=== PATIENT | female | born 1955 | race Caucasian/White ===

== ENCOUNTER 2018-03-08 00:42 | Inpatient (IN) | payer MEDICARE ==
[2018-03-08 01:36] LABS: #Basophils 0.2 thou/uL (0.0-0.2); #Eosinphils 0.3 thou/uL (0.0-0.7); #Monocytes 0.5 thou/uL (0.11-0.59); #Neutrophils 4.4 thou/uL (1.40-6.50); %Basophils 1.5 % (0.0-1.0); %Eosinophils 2.7 % (0.0-10.0); %Lymphocytes 48.5 % (21.0-51.0); %Monocytes 4.6 % (0.0-10.0); %Neutrophils 42.7 % (42.0-75.0); Hemoglobin 10.6 g/dL (12.0-16.0); Mean Corpuscular HGB CONC 34.9 g/dL (32.0-36.0); Mean Corpuscular Hemoglobin 33.3 pg (27.0-31.0); Mean Corpuscular Volume 95.2 fl (81.0-99.0); Mean Platelet Volume 9.5 fL (7.4-10.4); Platelet Count 177 thou/uL (130-400); RBC Distribution Width 12.3 % (11.5-14.5); Red Blood Cell (RBC) Count 3.19 mill/uL (4.20-5.40); White Blood Cell (WBC) Count 10.4 thou/uL (4.8-10.8)
[2018-03-08 02:00] LABS: CKMB 2.2 ng/mL (0-6.6)
[2018-03-08] MEDS ORDERED: GENTAMICIN SULFATE IVPB SCH (02:00)
[2018-03-08] MEDS ORDERED: SODIUM CHLORIDE 0.9% IVPB SCH (02:00)
[2018-03-08 02:10] LABS: Troponin I Less than 0.010 ng/mL (< 0.028)
[2018-03-08 02:14] LABS: ALT (SGPT) 11 U/L (8-55); AST (SGOT) 18 U/L (5-34); Albumin 3.2 g/dL (3.5-5.0); Alkaline Phosphatase 47 U/L (40-150); Anion Gap 12 mmol/L (10-20); BUN (Urea Nitrogen) 16 mg/dL (9.8-20.1); Bilirubin, Total 0.2 mg/dL (0.2-1.2); Calc. Creatinine Clearance 0 mL/min (70-130); Calcium 7.5 mg/dL (7.8-10.44); Carbon Dioxide 17 mmol/L (22-29); Chloride 111 mmol/L (98-107); Estimated GFR-MDRD Greater than 90; Glucose 86 mg/dL (70-105); Potassium 3.9 mmol/L (3.5-5.1); Protein, Total 5.2 g/dL (6.0-8.3); Sodium 136 mmol/L (136-145)
[2018-03-08] MEDS ORDERED: HYDROmorphone 2 MG TAB PO SCH (04:30)
[2018-03-08] MEDS ORDERED: cefTRIAXone Sodium 1 MG in Syringe 0 ML IVPB SCH (04:30)
[2018-03-08] MEDS: cefTRIAXone\\ROCEPHIN 1 GM, Syringe 0.4 ML in Sterile Water 9.6 ML SLOW IVP SCH (05:11)
[2018-03-08] MEDS: Sodium Chloride 0.9% 1,000 ML IV SCH ×2 (06:12→18:31)
--- NOTE | 2018-03-08 06:22 | HP ---
CHIEF COMPLAINT: Hypotension, generalized weakness. PRIMARY CARE PHYSICIAN: Out of town PCP. HISTORY OF PRESENT ILLNESS: The patient is a very pleasant 62-year-old female with history of hypert ension and anxiety who presents to the hospital with complaints of generalized weakness and low blood pressure. The patient stated that about couple of days ago after taking her blood pressure medicati ons, she felt unwell so when she took her blood pressure at home she found that her blood pressure wa s very low. The following day, patient just only took one of her blood pressure medication and she s tated that her blood pressure that day was well. However, today she took all her blood pressure medi cations and started feeling unwell so her daughter drove her to the ER. Upon bringing her to the ER, patient started seeing some dark spots and did not feel really well and started having an anxiety or panic attack. At this time, the patient's daughter pulled the car over and called EMS to bring her to the hospital for further evaluation. PAST MEDICAL HISTORY: History of right bundle branch block, anxiety, hepatitis C, Galvan's palsy, COPD , and hypertension. PAST SURGICAL HISTORY: She had bilateral hip done. She has a history of MRSA infection x3 in her ri ght hip and history of tonsillectomy. SOCIAL HISTORY: She denies any alcohol use, denies any drugs; however, she currently continues to sm elizabeth cigarettes. The patient smokes half a pack a day. ALLERGIES: PENICILLIN. The patient says that she denies any rash or hives with penicillin or any di fficulty breathing. MEDICATIONS: She takes losartan 25 mg daily. She takes sertraline 25 mg daily, clonidine 0.1 mg as needed, hydrocodone 4 mg every 8 hours p.r.n., Xanax 0.25 every 6 hours p.r.n., metoprolol 25 mg once a day, BuSpar 10 mg b.i.d., Benadryl 25 mg every 8 hours, Keflex 500 mg t.i.d., escitalopram 10 mg d aily, and meclizine 25 mg every 8 hours p.r.n. FAMILY HISTORY: Denies any family history of any heart disease or any diabetes. REVIEW OF SYSTEMS: The following complete review of systems was negative, unless otherwise mentioned in the HPI or below: Constitutional: Weight loss or gain, ability to conduct usual activities. Sk in: Rash, itching. Eyes: Double vision, pain. ENT/Mouth: Nose bleeding, neck stiffness, pain, ten derness. Cardiovascular: Palpitations, dyspnea on exertion, orthopnea. Respiratory: Shortness of breath, wheezing, cough, hemoptysis, fever or night sweats. Gastrointestinal: Poor appetite, abdomi nal pain, heartburn, nausea, vomiting, constipation, or diarrhea. Genitourinary: Urgency, frequency , dysuria, nocturia. Musculoskeletal: Pain, swelling. Neurologic/Psychiatric: Anxiety, depression . Allergy/Immunologic: Skin rash, bleeding tendency. All negative except for the ones mentioned in the HPI. PHYSICAL EXAMINATION: VITAL SIGNS: She is afebrile at 98.2, respirations of 18, 97% on room air. Her blood pressure initi ally was 80/53 when I was in the room, it was 106/60, pulse of 73. GENERAL: She is awake, alert, oriented x3, does not appear in any distress. CARDIOVASCULAR: S1, S2 present. No murmurs, rubs or gallops. LUNGS: Clear to auscultation. No rhonchi, wheezes noted. ABDOMEN: Soft. Bowel sounds are present x2. Mild epigastric tenderness. EXTREMITIES: The patient does have an inversion of her left foot inward, which is chronic. No pain upon palpation around her bilateral hip area. LABORATORY DATA: Are as the following: WBCs of 10.4, hemoglobin of 10.6, hematocrit of 30.4, platel ets are normal at 177. Chemistry: Sodium of 132, potassium of 3.9, BUN of 16, and creatinine of 0.5 8. Troponin x2 negative. Lactic acid initially was 3.6, now is 1.2. Chest x-ray was done in the ER , which did not indicate any acute abnormalities. ASSESSMENT AND PLAN: The patient is a very pleasant 62-year-old female who initially presented to [facility] for hypertension. 1. Possible sepsis. The patient received some fluids in the ER. We will continue gentle IV hydrati on. We will hold her antihypertensives. We will continue ceftriaxone for her urinary tract infectio n. Blood cultures are drawn. We will continue to monitor. 2. Hypotension. This could be secondary to her taking her medications in conjunction with the pain medication. The patient denies any recent adjustment in her blood pressure medications. The patient states that she has been eating and drinking well. Denies any recent dehydration state or any diarr hea. We will hold off on patient's blood pressure medications for now and continue to monitor. 3. Anxiety. We will continue patient's home medications. 4. Chronic right hip pain. We will continue patient's Dilaudid 4 mg every 8 hours. 5. Deep venous thrombosis prophylaxis. We will put patient on sequential compression devices.
[2018-03-08 07:11] VITALS: BMI 23.5
[2018-03-08] MEDS: Docusate 100 MG CAP PO SCH ×2 (08:32→21:02)
[2018-03-08] MEDS: Heparin 5,000 UNITS/ML VIAL SC SCH ×3 (08:32→21:05)
[2018-03-08] MEDS ORDERED: HYDROmorphone 2 MG TAB PO PRN (13:18)
[2018-03-08] MEDS ORDERED: Meclizine HCl 25 MG TAB PO PRN (13:18)
[2018-03-08] MEDS ORDERED: DULoxetine 30 MG CAP PO SCH (13:30)
[2018-03-08] MEDS ORDERED: Escitalopram Oxalate 10 mg Tablet PO SCH (13:30)
[2018-03-08] MEDS: ALPRAZolam 0.25 MG TAB PO PRN ×2 (13:40→22:57)
[2018-03-08] MEDS: Cephalexin 250 MG CAP PO SCH ×2 (15:15→21:01)
[2018-03-08] MEDS: HYDROmorphone 2 MG TAB PO SCH ×2 (15:16→21:02)
[2018-03-08] MEDS ORDERED: Nicotine 14 MG PATCH TD PRN (18:21)
[2018-03-09 06:25] LABS: #Basophils 0.1 thou/uL (0.0-0.2); #Eosinphils 0.2 thou/uL (0.0-0.7); #Lymphocytes 2.7 thou/uL (1.20-3.40); #Monocytes 0.4 thou/uL (0.11-0.59); %Basophils 0.9 % (0.0-1.0); %Eosinophils 2.6 % (0.0-10.0); %Lymphocytes 28.3 % (21.0-51.0); %Monocytes 4.5 % (0.0-10.0); %Neutrophils 63.7 % (42.0-75.0); Hemoglobin 11.3 g/dL (12.0-16.0); Mean Corpuscular HGB CONC 34.4 g/dL (32.0-36.0); Mean Corpuscular Volume 95.7 fl (81.0-99.0); Mean Platelet Volume 10.2 fL (7.4-10.4); Platelet Count 208 thou/uL (130-400); RBC Distribution Width 12.5 % (11.5-14.5); Red Blood Cell (RBC) Count 3.44 mill/uL (4.20-5.40); White Blood Cell (WBC) Count 9.4 thou/uL (4.8-10.8)
[2018-03-09] MEDS: HYDROmorphone 2 MG TAB PO SCH ×3 (06:32→21:09)
[2018-03-09] MEDS: cefTRIAXone\\ROCEPHIN 1 GM, Syringe 0.4 ML in Sterile Water 9.6 ML SLOW IVP SCH (06:33)
[2018-03-09] MEDS: Sodium Chloride 0.9% 1,000 ML IV SCH ×3 (06:33→23:48)
[2018-03-09 06:42] LABS: Anion Gap 11 mmol/L (10-20); BUN (Urea Nitrogen) 6 mg/dL (9.8-20.1); Calc. Creatinine Clearance 98 mL/min (70-130); Carbon Dioxide 16 mmol/L (22-29); Chloride 115 mmol/L (98-107); Estimated GFR-MDRD Greater than 90; Glucose 105 mg/dL (70-105); Sodium 139 mmol/L (136-145)
[2018-03-09 07:47] LABS: Folate (Folic Acid) 9.1 ng/mL (7.0-31.4)
[2018-03-09] MEDS: Escitalopram Oxalate 10 mg Tablet PO SCH (08:25)
[2018-03-09] MEDS: DULoxetine 30 MG CAP PO SCH (08:25)
[2018-03-09] MEDS: Heparin 5,000 UNITS/ML VIAL SC SCH ×3 (08:25→20:19)
[2018-03-09] MEDS: Docusate 100 MG CAP PO SCH ×2 (08:25→20:20)
[2018-03-09] MEDS: Losartan 25 MG TAB PO SCH (08:25)
[2018-03-09] MEDS ORDERED: Potassium Chloride 20 MEQ TAB PO SCH (10:00)
[2018-03-09] MEDS: ALPRAZolam 0.25 MG TAB PO PRN ×2 (11:12→18:50)
--- NOTE | 2018-03-09 15:03 | CT ---
NONCONTRAST HEAD CT: HISTORY: Dizziness. Losing track of time. COMPARISON: None. TECHNIQUE: A noncontrast head CT is performed from the skull base to the skull vertex. FINDINGS: No parenchymal hemorrhage. No extraaxial hematoma. No midline shift. The basilar cisterns are ortega nt. Age appropriate brain volume. Cortical hernandez white matter differentiation is preserved. The ventricles and sulci are patent and symmetric. Adequate aeration of the paranasal sinuses. Bilateral mastoid air cell and middle ear opacification. IMPRESSION: No acute intracranial process. POS: OFF
--- NOTE | 2018-03-09 20:17 | PDOC.PN ---
- Subjective Encounter Start Date: 03/09/18 Encounter Start Time: 09:45 Subjective: pt up in bed no complains - Objective Resuscitation Status: Resuscitation Status FULL:Full Resuscitation Vital Signs & Weight: Vital Signs (12 hours) Temp Pulse Pulse Pulse Resp BP BP 03/09/18 17:55 03/09/18 15:56 98.1 F 111 H 16 03/09/18 11:07 73 59 L 140/103 H 165/91 H 03/09/18 08:24 96.5 F L 60 16 BP BP BP BP Pulse Ox 03/09/18 17:55 155/80 H 122/87 161/76 H 03/09/18 15:56 181/101 H 91 L 03/09/18 11:07 03/09/18 08:24 98 Weight Weight 116 lb 4.8 oz I&O: 03/08/18 03/09/18 03/10/18 06:59 06:59 06:59 Intake Total 1381 1551 Balance 1381 1551 Result Diagrams: 03/09/18 06:04 03/09/18 06:04 Phys Exam - Physical Examination HEENT: PERRLA, moist MMs, sclera anicteric, TM's clear, oral pharynx no lesions , 2+ tonsils Neck: no nodes, no JVD, supple, full ROM Respiratory: no wheezing, no rales, no rhonchi, wheezing present, clear to auscultation bilateral Cardiovascular: RRR, no significant murmur, no rub, gallop, irregular Gastrointestinal: soft, non-tender, no distention, positive bowel sounds Dx/Plan - Plan * 1) possible sepsis * 2) hypotension * 3) chronic pain * * plan: UA normal cachorro, will discontinue abx, pt's hypotension has resolved. will continue to cut back on her meds. pt complained of some memory loss, will check ct head, vit b12. If negative will discharge pt home and follow up outpatient with neurology. Review of Systems - Review of Systems Eyes: negative: Pain, Vision Change, Conjunctivae Inflammation, Eyelid Inflammation, Redness, Other Respiratory: negative: Cough, Dry, Shortness of Breath, Hemoptysis, SOB with Excertion, Pleuritic Pain, Sputum, Wheezing Cardiovascular: negative: chest pain, palpitations, orthopnea, paroxysmal nocturnal dyspnea, edema, light headedness, other Gastrointestinal: negative: Nausea, Vomiting, Abdominal Pain, Diarrhea, Constipation, Melena, Hematochezia, Other Genitourinary: negative: Dysuria, Frequency, Incontinence, Hematuria, Retention , Other Musculoskeletal: negative: Neck Pain, Shoulder Pain, Arm Pain, Back Pain, Hand Pain, Leg Pain, Foot Pain, Other Neurological: Other Other: memory loss - Medications/Allergies Allergies/Adverse Reactions: Allergies Allergy/AdvReac Type Severity Reaction Status Date / Time Penicillins Allergy Verified 03/08/18 01:52 Medications: Current Medications Alprazolam (Xanax) 0.25 mg PO Q6HR PRN PRN Reason: Anxiety Last Admin: 03/09/18 18:50 Dose: 0.25 mg Docusate Sodium (Colace) 100 mg PO BID [facility] Last Admin: 03/09/18 08:25 Dose: 100 mg Duloxetine HCl (Cymbalta) 30 mg PO DAILY [facility] Last Admin: 03/09/18 08:25 Dose: Not Given Escitalopram Oxalate (Lexapro) 10 mg PO DAILY [facility] Last Admin: 03/09/18 08:25 Dose: 10 mg Heparin Sodium (Porcine) (Heparin) 5,000 units SC TID [facility] Last Admin: 03/09/18 14:38 Dose: 5,000 units Hydromorphone HCl (Dilaudid) 2 mg PO Q8HR [facility] Last Admin: 03/09/18 14:37 Dose: 2 mg Hydromorphone HCl (Dilaudid) 4 mg PO Q8HR PRN PRN Reason: Pain Sodium Chloride (Normal Saline 0.9%) 1,000 mls @ 75 mls/hr IV .[id number] [facility] Last Admin: 03/09/18 06:33 Dose: 1,000 mls Ceftriaxone Sodium 1 gm/ (Syringe 0.4 ml/ Sterile Water) 10 mls @ 120 mls/hr SLOW IVP 0500 [facility] Last Admin: 03/09/18 06:33 Dose: 10 mls Lorazepam (Ativan) 0.5 mg SLOW IVP Q6H PRN PRN Reason: Anxiety/Agitation Losartan Potassium (Cozaar) 25 mg PO DAILY [facility] Last Admin: 03/09/18 08:25 Dose: 25 mg Meclizine HCl (Antivert) 25 mg PO TID PRN PRN Reason: Dizziness Metoprolol Succinate (Toprol Xl) 25 mg PO DAILY [facility] Last Admin: 03/09/18 08:25 Dose: 25 mg Mirabegron (Myrbetriq Er) 50 mg PO DAILY [facility] Last Admin: 03/09/18 08:24 Dose: 50 mg Nicotine (Nicoderm Patch) 14 mg TD Q24HR PRN PRN Reason: Smoking craving
[2018-03-09] MEDS: Lorazepam 2 MG/ML VIAL SLOW IVP PRN (23:48)
[2018-03-10] MEDS: cefTRIAXone\\ROCEPHIN 1 GM, Syringe 0.4 ML in Sterile Water 9.6 ML SLOW IVP SCH (04:29)
[2018-03-10] MEDS: HYDROmorphone 2 MG TAB PO SCH ×3 (05:14→21:42)
[2018-03-10 07:07] LABS: Anion Gap 13 mmol/L (10-20); BUN (Urea Nitrogen) 7 mg/dL (9.8-20.1); Calc. Creatinine Clearance 78 mL/min (70-130); Calcium 8.4 mg/dL (7.8-10.44); Carbon Dioxide 16 mmol/L (22-29); Chloride 113 mmol/L (98-107); Estimated GFR-MDRD Greater than 90; Glucose 103 mg/dL (70-105); Potassium 3.5 mmol/L (3.5-5.1); Sodium 138 mmol/L (136-145)
[2018-03-10] MEDS: Docusate 100 MG CAP PO SCH ×2 (08:27→19:42)
[2018-03-10] MEDS: Losartan 25 MG TAB PO SCH (08:28)
[2018-03-10] MEDS: DULoxetine 30 MG CAP PO SCH (08:28)
[2018-03-10] MEDS: Heparin 5,000 UNITS/ML VIAL SC SCH ×3 (08:28→19:42)
[2018-03-10] MEDS: Escitalopram Oxalate 10 mg Tablet PO SCH (08:28)
[2018-03-10] MEDS: Lorazepam 2 MG/ML VIAL SLOW IVP PRN (11:08)
--- NOTE | 2018-03-10 17:10 | PDOC.PN ---
- Subjective Encounter Start Date: 03/10/18 Encounter Start Time: 11:30 Subjective: pt up in chair hyperventilating, anxious - Objective Resuscitation Status: Resuscitation Status FULL:Full Resuscitation Vital Signs & Weight: Vital Signs (12 hours) Temp Pulse Resp BP Pulse Ox 03/10/18 15:57 97.4 F L 70 18 169/100 H 99 03/10/18 11:51 98 F 79 18 158/86 H 99 03/10/18 08:00 97.2 F L 78 18 98 03/10/18 07:37 97.2 F L 78 18 162/102 H 98 Weight Weight 116 lb 4.8 oz I&O: 03/09/18 03/10/18 03/11/18 06:59 06:59 06:59 Intake Total 1381 2691 Balance 1381 2691 Result Diagrams: 03/09/18 06:04 03/10/18 06:02 Phys Exam - Physical Examination HEENT: PERRLA, moist MMs, sclera anicteric, TM's clear, oral pharynx no lesions , 2+ tonsils Neck: no nodes, no JVD, supple, full ROM Respiratory: no wheezing, no rales, no rhonchi, wheezing present, clear to auscultation bilateral Cardiovascular: RRR, no significant murmur, no rub, gallop, irregular Gastrointestinal: soft, non-tender, no distention, positive bowel sounds Musculoskeletal: no edema, pulses present, edema present Dx/Plan - Plan 1) possible sepsis * 2) hypotension * 3) chronic pain * 4) smoking cessation * * plan: UA normal cachorro, will discontinue abx, pt's hypotension has resolved. will continue to cut back on her meds. pt complained of some memory loss, will check ct head, vit b12. ct head negative. echo ordered pending read. pt very anxious today about her conversation with her daughter. pt was advised against smoking. * * . Review of Systems - Review of Systems Eyes: negative: Pain, Vision Change, Conjunctivae Inflammation, Eyelid Inflammation, Redness, Other ENT: negative: Ear Pain, Ear Discharge, Nose Pain, Nose Discharge, Nose Congestion, Mouth Pain, Mouth Swelling, Throat Pain, Throat Swelling, Other Cardiovascular: negative: chest pain, palpitations, orthopnea, paroxysmal nocturnal dyspnea, edema, light headedness, other Gastrointestinal: negative: Nausea, Vomiting, Abdominal Pain, Diarrhea, Constipation, Melena, Hematochezia, Other Genitourinary: negative: Dysuria, Frequency, Incontinence, Hematuria, Retention , Other - Medications/Allergies Allergies/Adverse Reactions: Allergies Allergy/AdvReac Type Severity Reaction Status Date / Time Penicillins Allergy Verified 03/08/18 01:52 Medications: Current Medications Alprazolam (Xanax) 0.25 mg PO Q6HR PRN PRN Reason: Anxiety Last Admin: 03/09/18 18:50 Dose: 0.25 mg Docusate Sodium (Colace) 100 mg PO BID [facility] Last Admin: 03/10/18 08:27 Dose: Not Given Duloxetine HCl (Cymbalta) 30 mg PO DAILY [facility] Last Admin: 03/10/18 08:28 Dose: Not Given Escitalopram Oxalate (Lexapro) 10 mg PO DAILY [facility] Last Admin: 03/10/18 08:28 Dose: 10 mg Heparin Sodium (Porcine) (Heparin) 5,000 units SC TID [facility] Last Admin: 03/10/18 15:53 Dose: 5,000 units Hydromorphone HCl (Dilaudid) 2 mg PO Q8HR [facility] Last Admin: 03/10/18 15:54 Dose: 2 mg Hydromorphone HCl (Dilaudid) 4 mg PO Q8HR PRN PRN Reason: Pain Lorazepam (Ativan) 0.5 mg SLOW IVP Q6H PRN PRN Reason: Anxiety/Agitation Last Admin: 03/10/18 11:08 Dose: 0.5 mg Losartan Potassium (Cozaar) 25 mg PO DAILY [facility] Last Admin: 03/10/18 08:28 Dose: 25 mg Meclizine HCl (Antivert) 25 mg PO TID PRN PRN Reason: Dizziness Metoprolol Succinate (Toprol Xl) 25 mg PO DAILY [facility] Last Admin: 03/10/18 08:28 Dose: 25 mg Mirabegron (Myrbetriq Er) 50 mg PO DAILY [facility] Last Admin: 03/10/18 08:29 Dose: 50 mg Nicotine (Nicoderm Patch) 14 mg TD Q24HR PRN PRN Reason: Smoking craving
[2018-03-10] MEDS: ALPRAZolam 0.25 MG TAB PO PRN (19:42)
[2018-03-11] MEDS: HYDROmorphone 2 MG TAB PO SCH ×3 (05:23→21:18)
[2018-03-11] MEDS: Docusate 100 MG CAP PO SCH ×2 (08:50→20:11)
[2018-03-11] MEDS: Escitalopram Oxalate 10 mg Tablet PO SCH (08:50)
[2018-03-11] MEDS: Heparin 5,000 UNITS/ML VIAL SC SCH ×3 (08:51→20:10)
[2018-03-11] MEDS: Losartan 25 MG TAB PO SCH (08:51)
[2018-03-11] MEDS: DULoxetine 30 MG CAP PO SCH (08:52)
[2018-03-11] MEDS ORDERED: HYDROmorphone 2 MG TAB PO PRN (09:37)
[2018-03-11] MEDS: ALPRAZolam 0.25 MG TAB PO PRN (17:02)
[2018-03-12] MEDS: ALPRAZolam 0.25 MG TAB PO PRN ×2 (01:43→09:26)
[2018-03-12] MEDS: HYDROmorphone 2 MG TAB PO SCH ×2 (05:26→13:26)
[2018-03-12] MEDS: Heparin 5,000 UNITS/ML VIAL SC SCH ×2 (09:11→15:52)
[2018-03-12] MEDS: Docusate 100 MG CAP PO SCH (09:11)
[2018-03-12] MEDS: Losartan 25 MG TAB PO SCH (09:12)
[2018-03-12] MEDS: DULoxetine 30 MG CAP PO SCH (09:12)
[2018-03-12] MEDS: Escitalopram Oxalate 10 mg Tablet PO SCH (09:12)
[2018-03-12 17:46] VITALS: TEMP 98.2
[2018-03-12 18:49] VITALS: BP 140/95
--- NOTE | 2018-03-12 20:33 | PDOC.PN ---
- Subjective Encounter Start Date: 03/12/18 Encounter Start Time: 09:45 Subjective: pt up in bed no complains - Objective Resuscitation Status: Resuscitation Status FULL:Full Resuscitation Vital Signs & Weight: Vital Signs (12 hours) Temp Pulse Resp BP BP Pulse Ox 03/12/18 18:45 140/95 H 03/12/18 17:28 98.2 F 70 18 179/98 H 97 03/12/18 11:05 98 F 76 20 131/78 100 03/12/18 09:30 172/84 H 03/12/18 08:50 98 F 76 20 98 Weight Weight 118 lb I&O: 03/11/18 03/12/18 03/13/18 06:59 06:59 06:59 Intake Total 1890 1550 1500 Balance 1890 1550 1500 Result Diagrams: 03/09/18 06:04 03/10/18 06:02 Phys Exam - Physical Examination HEENT: PERRLA, moist MMs, sclera anicteric, TM's clear, oral pharynx no lesions , 2+ tonsils Neck: no nodes, no JVD, supple, full ROM Respiratory: no wheezing, no rales, no rhonchi, wheezing present, clear to auscultation bilateral Cardiovascular: RRR, no significant murmur, no rub, gallop, irregular Gastrointestinal: soft, non-tender, no distention, positive bowel sounds Musculoskeletal: no edema, pulses present, edema present Dx/Plan - Plan 1) possible sepsis * 2) hypotension * 3) chronic pain * 4) smoking cessation * * plan: UA normal cachorro, will discontinue abx, pt's hypotension has resolved. will continue to cut back on her meds. pt complained of some memory loss, will check ct head, vit b12. ct head negative. echo ordered pending read. pt very anxious today about her conversation with her daughter. pt was advised against smoking. * 3/4 echo done read pending, if normal will discharge pt home. * . Review of Systems - Review of Systems ENT: negative: Ear Pain, Ear Discharge, Nose Pain, Nose Discharge, Nose Congestion, Mouth Pain, Mouth Swelling, Throat Pain, Throat Swelling, Other Respiratory: negative: Cough, Dry, Shortness of Breath, Hemoptysis, SOB with Excertion, Pleuritic Pain, Sputum, Wheezing Cardiovascular: negative: chest pain, palpitations, orthopnea, paroxysmal nocturnal dyspnea, edema, light headedness, other Gastrointestinal: negative: Nausea, Vomiting, Abdominal Pain, Diarrhea, Constipation, Melena, Hematochezia, Other Genitourinary: negative: Dysuria, Frequency, Incontinence, Hematuria, Retention , Other - Medications/Allergies Allergies/Adverse Reactions: Allergies Allergy/AdvReac Type Severity Reaction Status Date / Time Penicillins Allergy Verified 03/08/18 01:52
--- NOTE | 2018-03-13 03:19 | DIS ---
DATE OF ADMISSION: 03/08/2018 DATE OF DISCHARGE: 03/12/2018 DISCHARGE DIAGNOSES: 1. Hypotension. 2. Chronic pain. 3. Possible sepsis. HOSPITAL COURSE: Patient is a very pleasant 62-year-old female with a history of chronic pain, hyper tension, and anxiety, who was found to be hypotensive. Patient initially was treated for UTI sepsis; however, the culture came back negative. Initially, the patient's blood pressure medications were s topped and then were slowly introduced. Patient continues to smoke periodically. Patient also compl ained of feeling haziness and lost track of time. At this point, a CT brain was ordered, which was n egative. Also, given the fact that she was hypotensive, which was documented, the patient underwent an echocardiogram; the read is still pending. Patient was discharged home since 2 days were spent wa iting for the echo read. Patient was notified that if her echo is abnormal, she will be getting a ca ll in regard to the results of the echo. Patient will follow up with PCP. Upon discharge, the candace garcia's medications were restarted since her blood pressure was very highly elevated in the systolics of 200s. HOME MEDICATIONS: As the following, 1. Escitalopram 10 mg daily. 2. Metoprolol 25 mg daily. 3. Meclizine 25 mg t.i.d. p.r.n. 4. Patient takes Dilaudid 4 mg q.8 hours p.r.n. 5. Duloxetine 30 mg daily. 6. Alprazolam 0.25 p.o. q.6 hours p.r.n. 7. Keflex 500 mg t.i.d. 8. Mirabegron 50 mg p.o. daily. 9. Cozaar 25 mg daily. 10. Colace 10 mg b.i.d. Recommended the patient to follow up with Neurology since initial CT head was negative. Patient stat ed that she will do so. PHYSICAL EXAMINATION: VITAL SIGNS: Temperature 98.0; 76 heart rate; 20 respirations; 100% on room air; blood pressure was 172/84, after rechecking later it was 131/78. GENERAL: She is awake, alert, oriented x3, does not appear in distress. CARDIOVASCULAR: S1 and S2 present. No murmurs, rubs, or gallops. ABDOMEN: Soft, nontender. Bowel sounds are present x2. EXTREMITIES: No edema. The patient will be discharged home. Follow up with PCP and also recommended following up with Neuro logy.
== END 2018-03-12 19:38 | disposition home or self-care (01) | DRG 872 ==
LOC: ERS 00:42 → 2SE 02:15
PROVIDERS: ADMIT Internal Medicine; ATTEND Internal Medicine
DX: A41.9 Sepsis, unspecified organism (principal); N39.0 Urinary tract infection, site not specified; I45.10 Unspecified right bundle-branch block; F41.9 Anxiety disorder, unspecified; J44.9 Chronic obstructive pulmonary disease, unspecified; I10 Essential (primary) hypertension; Z88.0 Allergy status to penicillin; M25.551 Pain in right hip; G89.29 Other chronic pain; F17.210 Nicotine dependence, cigarettes, uncomplicated; Z79.899 Other long term (current) drug therapy; Z86.14 Personal history of Methicillin resistant Staphylococcus aureus infection
CPT/HCPCS: 36415; 70450; 80048; 80053; 82553; 82607; 82746; 83605; 83735; 84443; 84484; 85025; 93005; 93306; 96361; 96365; 96367; 99406; A4216; G8978-GP-CJ; G8979-GP-CI; G8987-GO-CI; G8988-GO-CI; G8989-GO-CI; J0696; J1580; J1644; J2060; J3370; J3475; J7050

== ENCOUNTER 2019-01-13 16:06 | Inpatient (IN) | payer MEDICARE, MEDICAID ==
[~2019-01-13 16:06] MED LIST: ISOVUE-370 76%-LOCM 1 ML ONE
[2019-01-13 16:22] LABS: #Basophils 0.1 thou/uL (0.0-0.2); #Eosinphils 0.1 thou/uL (0.0-0.7); #Lymphocytes 2.2 thou/uL (1.20-3.40); #Monocytes 0.4 thou/uL (0.11-0.59); #Neutrophils 3.5 thou/uL (1.40-6.50); %Basophils 2.1 % (0.0-1.0); %Eosinophils 1.1 % (0.0-10.0); %Lymphocytes 35.3 % (21.0-51.0); %Monocytes 6.2 % (0.0-10.0); %Neutrophils 55.4 % (42.0-75.0); Hemoglobin 12.2 g/dL (12.0-16.0); Mean Corpuscular HGB CONC 32.6 g/dL (32.0-36.0); Mean Corpuscular Hemoglobin 32.8 pg (27.0-31.0); Mean Platelet Volume 9.2 fL (7.4-10.4); Platelet Count 288 thou/uL (130-400); Red Blood Cell (RBC) Count 3.72 mill/uL (4.20-5.40); White Blood Cell (WBC) Count 6.3 thou/uL (4.8-10.8)
--- NOTE | 2019-01-13 16:24 | CT ---
CT BRAIN: History: Altered mental status, slurred speech. Date: 01-13-19 Comparison: 03-09-18 FINDINGS: Images demonstrate mild cortical atrophy. No evidence of intracranial masses, hemorrhages, strokes or contusions seen. Ventricles are of normal size. IMPRESSION: Normal CT brain. Findings called to Dr. Blackmon at 4:14 p.m. 01-13-19. POS: [facility]
[2019-01-13 16:26] LABS: PTT 22.3 SEC (22.9-36.1); Prothrombin Time 12.2 SEC (12.0-14.7)
[2019-01-13 16:28] LABS: INR-International Normal Ratio 0.9
[2019-01-13 16:37] LABS: ALT (SGPT) 16 U/L (8-55); AST (SGOT) 21 U/L (5-34); Albumin 3.9 g/dL (3.4-4.8); Alkaline Phosphatase 64 U/L (40-150); Anion Gap 17 mmol/L (10-20); BUN (Urea Nitrogen) 8 mg/dL (9.8-20.1); Bilirubin, Total 0.4 mg/dL (0.2-1.2); CK (CPK) 57 U/L (29-168); Calc. Creatinine Clearance 0 mL/min (70-130); Calcium 9.3 mg/dL (7.8-10.44); Carbon Dioxide 19 mmol/L (23-31); Chloride 104 mmol/L (98-107); Estimated GFR-MDRD Greater than 90; Globulin 3.3 g/dL (2.4-3.5); Glucose 89 mg/dL (80-115); Protein, Total 7.2 g/dL (6.0-8.3); Sodium 136 mmol/L (136-145)
[2019-01-13 16:46] LABS: Bilirubin Negative (Negative); Blood, Urine Negative (Negative); Clarity CLEAR (Clear); Glucose, Urine (Dipstick) Negative (Negative); Leukocyte Negative (Negative); Nitrite Negative (Negative); Protein, Urine (Dipstick) Negative (Neg-Trace); Specific Gravity, Urine 1.022 (1.002-1.036); Urobilinogen 0.2 mg/dL (0.2-1.0); pH, Urine 5.5 (5.0-9.0)
[2019-01-13] MEDS ORDERED: Aspirin Chewable 81 MG TAB ONE (16:59)
--- NOTE | 2019-01-13 17:06 | CT ---
HISTORY: Stroke. Level I. Aphasia, slurred speech. CAROTID AND INTRACRANIAL CTA: 01/13/19 Contrast enhanced CTA carotid and intracranial structures performed. 2D and 3D reconstructed images p erformed on an independent 3D workstation. The aorta is unremarkable. The right brachiocephalic artery is patent. The right and left subclavian arteries are patent. The right common carotid artery is patent along its entire course. There is minimal atherosclerotic p laques along the origin of the right ICA. No significant stenosis seen. The course of the right ICA is patent. LEFT CAROTID: The left common carotid artery is patent. There is some minimal atherosclerotic plaque in the distal most aspect of the left CCA. The course of the left ICA is patent. INTRACRANIAL CTA: Normal flow seen in the supraclinoid ICA with good flow seen in the right and left middle cerebral ar teries, anterior cerebral arteries, right and left vertebral arteries, basilar artery and posterior c erebral arteries. IMPRESSION: Normal carotid, vertebral and intracranial CTA. POS: [facility]
[2019-01-13] MEDS ORDERED: Ondansetron ODT 4 MG TAB SL PRN (19:35)
[2019-01-13] MEDS ORDERED: Acetaminophen 325 MG TAB PO PRN (19:35)
[2019-01-13] MEDS ORDERED: Ondansetron PF 4 MG/2 ML Vial IVP PRN ×2 (19:35→22:44)
[2019-01-13] MEDS ORDERED: hydrALAZINE 20 MG/ML VIAL SLOW IVP PRN (22:44)
[2019-01-13] MEDS ORDERED: Ondansetron ODT 4 MG TAB PO PRN (22:44)
[2019-01-13] MEDS ORDERED: ALPRAZolam 0.25 MG TAB PO SCH (23:45)
[2019-01-14 00:26] VITALS: BMI 25.0
--- NOTE | 2019-01-14 03:39 | HP ---
PRIMARY CARE PROVIDER: Dr. Turk of [place], [place]. CHIEF COMPLAINT: Difficulty with speech and ambulating. HISTORY OF PRESENT ILLNESS: This is a 63-year-old female, who presented to [facility] Emergency Department by EMS transport after experiencing inability to speak with staring into space while driving to her son's apartment. The patient states the symptoms began abruptly, where she could hear and see her daughter but was unable to respond to her speaking. The patient also felt generally weak and needed assistance to a stairwell near her son's apartment. EMS personnel had reported the patient with dysarthria and expressive dysphagia that lasted approximately 15 to 20 minutes. 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 The patient also admits to some difficulty with labile blood pressure readings with intermittent spikes and troughs on her current blood pressure regimen. The patient saw her primary care provider within the last 24 hours due to multiple falls with recommendation by her primary care provider to seek consultation with Cardiology Service. The patient denied any specific changes to her chronic medication regimen but does admit that she takes chronic Xanax and Lexapro. In the emergency room, the patient underwent general evaluation including general stroke protocol with CT of the brain and CT angiogram of the unga of Hernandez negative. The patient received aspirin 324 mg and was referred to the Stroke Unit for further evaluation. PAST MEDICAL HISTORY: 1. Recurrent falls. 2. Depression. 3. Hypertension. 4. Question of vertigo. 5. Anxiety disorder. 6. Congenital hip dysplasia. 7. Chronic pain syndrome. 8. Right bundle branch block. 9. History of hepatitis C, unknown treatment. 10. Chronic obstructive pulmonary disease. 11. Tobacco abuse. PAST SURGICAL HISTORY: 1. Status post bilateral hip repair, secondary to congenital hip dysplasia. 2. History of MRSA infection of the right hip x3. 3. Status post tonsillectomy. CURRENT MEDICATIONS: 1. Losartan 25 mg p.o. daily. 2. Sertraline 25 mg p.o. daily. 3. Xanax 0.25 mg p.o. q.6 hours p.r.n. 4. Metoprolol 25 mg p.o. daily. 5. Lexapro 10 mg p.o. daily. 6. Meclizine 25 mg p.o. q.8 hours p.r.n. ALLERGIES: PENICILLIN. FAMILY HISTORY: No inheritable diseases per patient report. SOCIAL HISTORY: Previously residing in [place], [place], and moving to the [facility] area to be near her children. Ambulates with occasional assistive device using a cane or walker. Multiple falls per patient report. Smokes up to half a pack of cigarettes daily. No illicit drug use or alcohol. REVIEW OF SYSTEMS: CONSTITUTIONAL: Negative for weight loss or gain, ability to conduct usual activities. SKIN: Negative for rash, itching. EYES: Negative for double vision, pain. ENT/MOUTH: Negative for nose bleeding, neck stiffness, pain, tenderness. CARDIOVASCULAR: Negative for palpitations, dyspnea on exertion, orthopnea. RESPIRATORY: Negative for shortness of breath, wheezing, cough, hemoptysis, fever or night sweats. GASTROINTESTINAL: Negative for poor appetite, abdominal pain, heartburn, nausea, vomiting, constipation, or diarrhea. GENITOURINARY: Negative for urgency, frequency, dysuria, nocturia. MUSCULOSKELETAL: Negative for pain, swelling. NEUROLOGIC/PSYCHIATRIC: Negative for anxiety, depression. ALLERGY/IMMUNOLOGIC: Negative for skin rash, bleeding tendency. Otherwise negative except as stated per HPI. PHYSICAL EXAMINATION: VITAL SIGNS: On admission, blood pressure 159/105, pulse 84, respiratory rate 17, temperature 98 degrees Fahrenheit, O2 saturation 98% on room air. GENERAL APPEARANCE: This is a 63-year-old female, alert and oriented x3, pleasant, responsive, in no acute distress. HEENT: Pupils are equal, round, reactive to light and accommodation. Extraocular muscles are intact. No scleral icterus. No conjunctival injection. Nares are patent. OP is clear. Teeth are in fair repair. NECK: Supple. No cervical adenopathy. No thyromegaly. No carotid bruits. No JVD appreciated. Cervical spine with full active and passive range of motion. No meningeal signs noted. Right facial asymmetry noted, chronic. CHEST: Diminished breath sounds in the bases, otherwise clear to auscultation. CARDIOVASCULAR EXAM: S1 and S2 with distant heart sounds. No murmur, rub, or gallop appreciated. ABDOMEN: Rounded, soft, nontender, and nondistended. Bowel sounds are positive in all 4 quadrants. There is no hepatosplenomegaly. No abdominal bruits. No rebound or guarding appreciated. EXTREMITIES: Warm and dry with fair turgor. No clubbing, cyanosis, or asymmetric edema appreciated. Pulses palpable distally at the dorsalis pedis, posterior tibial, and popliteal arteries bilaterally. Capillary refill less than 2 seconds. NEUROLOGIC: Speech is clear. Mild right lower extremity weakness compared to the left lower extremity, chronic. Cranial nerves 2 through 12 are grossly intact except for right facial asymmetry, chronic. No other focal deficits appreciated. The patient not observed ambulatory during this exam. PERTINENT LAB AND X-RAY FINDINGS: She may complete metabolic profile within normal limits. CBC showed MCV of 101.0, PT 12.2, INR 0.9, PTT 22.3. Urinalysis negative. CT of the brain without contrast dated 01/13/2019 showed no acute intracranial process. CT angiogram of the head and neck showed no focal stenosis or hemodynamically significant stenosis. EKG dated 01/13/2019 by my interpretation shows sinus mechanism with heart rates in the 80s. Low voltage tracing in the precordial leads. Attenuated R-waves noted in the precordial leads. Left axis deviation. No acute ST-T wave changes appreciated. ASSESSMENT AND PLAN: 1. Transient ischemic attack. The patient will be admitted to the stroke unit. We will continue aspirin 81 mg daily. Continue general stroke protocol to include 2D transthoracic echocardiogram and MRI imaging of the brain. Check orthostatic vital signs and fasting lipid profile in the a.m. 2. Hypertension. Labile by history. We will continue serial blood pressure monitoring. P.r.n. hydralazine. Optimize blood pressure regimen prior to discharge. 3. Expressive dysphasia. Questionable chronic condition. See #1 above. 4. Tobacco abuse. Smoking cessation resources prior to discharge. 5. Anxiety disorder. Suspect component of polypharmacy and patient's presentation. Continue to monitor neurologic response after resumption of home medication regimen to include Xanax, Cymbalta, and Lexapro. 6. Recurrent falls. Suspect multifactorial. PT/OT evaluation for functional assessment. General fall risk precautions. 7. Prophylaxis. SCDs while in bed. Pepcid 20 mg p.o. b.i.d. 8. Code status is full. Surrogate medical decision maker is patient's daughter. Job ID: [id number]
[2019-01-14 06:01] LABS: Band 3 % (5-11); Eosinophils 2 % (0-10); Hemoglobin 11.6 g/dL (12.0-16.0); Lymphocytes 43 % (21-51); MDiff Complete? YES; Mean Corpuscular HGB CONC 31.6 g/dL (32.0-36.0); Mean Corpuscular Hemoglobin 31.5 pg (27.0-31.0); Mean Corpuscular Volume 99.7 fL (78.0-98.0); Mean Platelet Volume 9.8 fL (7.4-10.4); Monocytes 3 % (0-10); Neutrophil 48 % (42-75); Platelet Count 283 thou/uL (130-400); Platelet Morphology Comment Appears Adequate; RBC Distribution Width 13.1 % (11.5-14.5)
[2019-01-14 06:05] LABS: Anion Gap 16 mmol/L (10-20); BUN (Urea Nitrogen) 13 mg/dL (9.8-20.1); Calc. Creatinine Clearance 80 mL/min (70-130); Calcium 9.1 mg/dL (7.8-10.44); Carbon Dioxide 20 mmol/L (23-31); Cardiac Risk 3.1 (Less than 4.5); Chloride 108 mmol/L (98-107); Cholesterol 160 mg/dl (< 200 Desired); Estimated GFR-MDRD Greater than 90; Glucose 102 mg/dL (80-115); HDL Cholesterol 51 mg/dL (>60 Neg Risk); LDL Cholesterol, Calculated 85 mg/dL; Potassium 3.9 mmol/L (3.5-5.1); Sodium 140 mmol/L (136-145); Triglycerides 118 mg/dL (Less than 150)
[2019-01-14] MEDS: Aspirin 81 mg Enteric Coated Tablet PO SCH (09:03)
[2019-01-14] MEDS: Famotidine 20 MG TAB PO SCH ×2 (09:03→19:49)
[2019-01-14] MEDS: Losartan 25 MG TAB PO SCH (09:03)
[2019-01-14] MEDS: DULoxetine 30 MG CAP PO SCH (09:03)
[2019-01-14] MEDS: Escitalopram Oxalate 10 mg Tablet PO SCH (09:03)
--- NOTE | 2019-01-14 11:21 | MRI ---
NONCONTRAST ENHANCED MRI IMAGES OF THE BRAIN: HISTORY: Altered mental status, slurred speech. FINDINGS: Multiplanar, multisequence noncontrast-enhanced MRI images of the brain demonstrate diffuse cortical atrophy. No evidence of intracranial masses, hemorrhages, strokes, or contusions seen. The ventricles are of normal size. IMPRESSION: Unremarkable noncontrast-enhanced MRI images of the brain. No evidence of diffusion restriction seen . POS: [facility]
--- NOTE | 2019-01-14 13:50 | PDOC.PN ---
- Subjective Encounter Start Date: 01/14/19 Encounter Start Time: 09:30 Subjective: no new weakness -: alert and oriented -: has chronic left shoulder dislocation - Objective Resuscitation Status - Order Detail: 01/13/19 22:39 Resuscitation Status Routine Resuscitation Status: FULL: Full Resuscitation MAR Reviewed: Yes Vital Signs & Weight: Vital Signs (12 hours) Temp Pulse Pulse Pulse Resp BP BP 01/14/19 11:29 98 F 77 18 01/14/19 08:57 78 64 168/110 H 156/89 H 01/14/19 07:31 97.5 F L 80 16 01/14/19 07:20 01/14/19 06:50 01/14/19 04:00 97.4 F L 90 19 BP BP BP BP Pulse Ox 01/14/19 11:29 146/90 H 94 L 01/14/19 08:57 01/14/19 07:31 141/106 H 97 01/14/19 07:20 99 01/14/19 06:50 137/93 H 141/106 H 137/96 H 01/14/19 04:00 117/82 92 L Weight Weight 115 lb 6 oz I&O: 01/13/19 01/14/19 01/15/19 06:59 06:59 06:59 Intake Total 400 300 Balance 400 300 Result Diagrams: 01/14/19 05:25 01/14/19 05:25 Phys Exam - Physical Examination HEENT: PERRLA, moist MMs Neck: no JVD, supple Respiratory: no wheezing, no rales Cardiovascular: RRR, no significant murmur Gastrointestinal: soft, non-tender, positive bowel sounds Musculoskeletal: no edema, pulses present Neurological: non-focal, moves all 4 limbs chronic cid's palsy Psychiatric: normal affect, A&O x 3 Dx/Plan (1) TIA (transient ischemic attack) Code(s): G45.9 - TRANSIENT CEREBRAL ISCHEMIC ATTACK, UNSPECIFIED Status: Resolved (2) Chronic dislocation of left shoulder Code(s): M24.412 - RECURRENT DISLOCATION, LEFT SHOULDER Status: Chronic (3) Osteoarthritis Code(s): M19.90 - UNSPECIFIED OSTEOARTHRITIS, UNSPECIFIED SITE Status: Chronic Qualifiers: Osteoarthritis location: multiple joints Osteoarthritis type: primary Qualified Code(s): M15.0 - Primary generalized (osteo)arthritis (4) Recurrent falls Code(s): R29.6 - REPEATED FALLS Status: Chronic (5) Physical deconditioning Code(s): R53.81 - OTHER MALAISE Status: Acute (6) Chronic pain disorder Code(s): G89.4 - CHRONIC PAIN SYNDROME Status: Chronic (7) HTN (hypertension) Code(s): I10 - ESSENTIAL (PRIMARY) HYPERTENSION Status: Chronic Qualifiers: Hypertension type: essential hypertension Qualified Code(s): I10 - Essential (primary) hypertension (8) RBBB Code(s): I45.10 - UNSPECIFIED RIGHT BUNDLE-BRANCH BLOCK Status: Chronic (9) H/O chronic hepatitis Code(s): Z87.19 - PERSONAL HISTORY OF OTHER DISEASES OF THE DIGESTIVE SYSTEM Status: Chronic Comment: ?hepatitis C - Plan hemostable -: MRI no evidence of cva -: has dysphagia per speech, will have modified barium swallow -: will need rehab per OT/PT -: continue home meds, asp, lipitor, cozaar * . Review of Systems - Medications/Allergies Allergies/Adverse Reactions: Allergies Allergy/AdvReac Type Severity Reaction Status Date / Time Penicillins Allergy Verified 03/08/18 01:52 Medications: Current Medications Acetaminophen (Tylenol) 1,000 mg PO Q6H PRN PRN Reason: Mild Pain (1-3) Alprazolam (Xanax) 0.25 mg PO Q6H PRN PRN Reason: Anxiety Aspirin (Ecotrin) 81 mg PO DAILY [facility] Last Admin: 01/14/19 09:03 Dose: 81 mg Atorvastatin Calcium (Lipitor) 40 mg PO [facility] Duloxetine HCl (Cymbalta) 30 mg PO DAILY [facility] Last Admin: 01/14/19 09:03 Dose: 30 mg Escitalopram Oxalate (Lexapro) 10 mg PO DAILY [facility] Last Admin: 01/14/19 09:03 Dose: 10 mg Famotidine (Pepcid) 20 mg PO BID [facility] Last Admin: 01/14/19 09:03 Dose: 20 mg Hydralazine HCl (Apresoline) 10 mg SLOW IVP Q4H PRN PRN Reason: BP > 220/110 Losartan Potassium (Cozaar) 25 mg PO DAILY [facility] Last Admin: 01/14/19 09:03 Dose: 25 mg Mirabegron (Myrbetriq Er) 50 mg PO DAILY [facility] Last Admin: 01/14/19 09:04 Dose: 50 mg Nicotine (Nicoderm Patch) 21 mg TOP Q24HR [facility] Ondansetron HCl (Zofran Odt) 4 mg PO Q6H PRN PRN Reason: Nausea/Vomiting Ondansetron HCl (Zofran) 4 mg IVP Q6H PRN PRN Reason: Nausea/Vomiting Sodium Chloride (Flush - Normal Saline) 10 ml IVF PRN PRN PRN Reason: Saline Flush
--- NOTE | 2019-01-14 15:12 | RAD ---
MODIFIED BARIUM SWALLOW: HISTORY: Dysphagia, oropharyngeal phase, R13.12. Feeding difficulties, R63.3. TECHNIQUE: Various suspensions of barium sulfate, including thin barium, nectar thick barium, and pudding in bar ium were given to the patient. FINDINGS: The patient demonstrates a patulous and distended piriform sinus. The ingested material has a tenden cy to pool in this area with all consistencies. The patient has repeated episodes of aspiration with out evidence of reacting. All consistencies have this appearance. In my opinion, it is unsafe for the patient to ingest material, as there is a high risk of aspiration and extensive piriform sinus pooling. The patient has an uncoordinated appearance once ingesting th e barium into the hypopharynx. POS: [facility]
[2019-01-14] MEDS: Nicotine 21 MG PATCH TOP SCH (15:27)
--- NOTE | 2019-01-14 18:08 | MRI ---
MR OF THE CERVICAL SPINE WITHOUT CONTRAST 01/14/19 INDICATION: No known injury with generalized weakness and muscle atrophy. Concern for demyelinating process. COMPARISON: None. TECHNIQUE: Multiplanar and multisequence MRI images were obtained of the cervical spine without IV contrast. The lack of IV contrast limits evaluation for active demyelinating process. FINDINGS: The visualized posterior fossa is unremarkable appearing. Bone marrow signal intensity appears within normal limits. Craniocervical junction appears within normal limits. The prevertebral soft tissues are normal appearing. At C2-C3, there is mild facet joint degenerative change but no appreciable central canal or neural foraminal narrowing. At C3-C4, there is facet osteoarthrosis with mild uncovertebral hypertrophy inducing mild left neural foraminal narrowing. At C4-C5, there is uncovertebral hypertrophy with facet joint degenerative change but no appreciable central canal or neural foraminal narrowing. At C5-C6, there is no appreciable central canal or neural foraminal narrowing. At C6-C7, there is no appreciable central canal or neural foraminal narrowing. There is a mild broad based bulge. At C7-T1, there is no appreciable central canal or neural foraminal narrowing. The visualized spinal cord demonstrates a normal signal intensity and contour. IMPRESSION: 1. Mild spondylosis of cervical spine without appreciable central canal or neural foraminal narr owing. 2. The visualized spinal cord demonstrates a normal signal intensity and contour. POS: [facility]
[2019-01-14] MEDS: ALPRAZolam 0.25 MG TAB PO PRN (19:49)
[2019-01-14] MEDS: Atorvastatin Calcium 40 MG TAB PO SCH (19:49)
--- NOTE | 2019-01-14 23:56 | CON ---
DATE OF CONSULTATION: 01/14/2019 CHIEF COMPLAINT: Possible stroke. HISTORY OF PRESENT ILLNESS: The patient's daughter and patient gave medical history. The patient has congenital hip dysplasia. 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 The patient could not talk well today and she kept saying she was seeing floaters and she kept saying no. She was at the [place]. The patient could not walk all of sudden and appeared to be confused to her daughter, she saw floaters. There was no history of headache. Her vision was affected. She kept staring her daughter and she saw something scary, it was a silver colored metal person and this episode lasted 20 to 30 minutes. Last time she hallucinated, it was on Thursday. She kept saying that she saw her daughter with a [place] man and then she started seeing a clown and she talked to the clown and called the actuarial associate. At baseline, she has difficulty with walking and uses a walker, but now she has more difficulty with walking. The patient's daughter reported that the patient does not move much during the day and she mostly sits in the chair and does not walk and is not physically active. PAST MEDICAL HISTORY: Recurrent falls, depression, hypertension, vertigo, anxiety disorder, congenital hip dysplasia, chronic pain, right bundle-branch block, hepatitis C, and chronic obstructive pulmonary disease. PAST SURGICAL HISTORY: Bilateral hip repair and MRSA infection of right hip three times and tonsillectomy. MEDICATIONS: At home, she takes; 1. Losartan. 2. Sertraline. 3. Xanax. 4. Metoprolol. 5. Lexapro. 6. Meclizine. ALLERGY: She is allergic to penicillin. FAMILY HISTORY: There is no history of any stroke in the family or any neurological disorders. SOCIAL HISTORY: She lives with her daughter who helps her and is her medical power of [place] attorney. She usually walks holding onto the orellana and she has a walker at home, does not use it and walker per daughter. She does smoke a lot of approximately half a pack of cigarettes per day and has been smoking for several years. REVIEW OF SYSTEMS: GENERAL: Negative for fever or weight loss. PULMONARY: Positive for cough and shortness of breath. GI: Negative for any diarrhea, nausea, or vomiting. CARDIOVASCULAR: Negative for chest pain or palpitations. ENT: Negative for any sore throat. MUSCULOSKELETAL: Positive for weakness. NEUROLOGICAL: Positive for episode of visual disturbance. GENITOURINARY: Negative for any bladder problems. OPHTHALMOLOGIC: Normal. LABORATORY DATA: Her workup so far, laboratory workup; white count 5.0, hemoglobin 11.6, hematocrit 36.9, MCV 99.7, and platelets 283. Chemistry; sodium 140, potassium 3.9, chloride 108, bicarb 20, BUN 13, creatinine 0.61. Triglycerides 118, cholesterol 160, LDL 85, HDL 51, heart disease risk ratio 3.1. PT 12.2, INR 0.9, PTT 22.3. Her MRI of the brain was negative for any acute stroke. No diffusion restriction was noted and CT of the head along with CT angiogram was performed yesterday and she had normal carotid, vertebral, and intracranial CT angiogram. PHYSICAL EXAMINATION: VITAL SIGNS: Blood pressure was 146/90, pulse rate is 77, temperature 98, respiratory rate 18, and O2 saturations 94%. GENERAL APPEARANCE: Well-built, well-nourished lady, who is mildly confused during this interview. CHEST: She has decreased breath sounds. CARDIOVASCULAR: S1, S2 heard. ABDOMEN: Soft. NEUROLOGIC: Higher intellectual functions. Oriented to time, place, and person. Cranial nerves normal. Pupils are 5 mm, reactive. Normal extraocular movements. Normal sensation of face bilaterally. Weakness of the right face due to old Galvan's palsy and tongue midline. No atrophy noted. Normal elevation of palate. Normal hearing bilaterally. Motor examination, she had diffuse generalized weakness. Her left arm was painful due to shoulder dislocation following a fall last Thursday. She has generalized weakness 3/5 in upper extremities and there was a muscle atrophy as well. She also had some weakness of the neck extensors and flexion as well as. Motor in the lower extremities, her strength was 1/5 proximal, distal 2/5. She had very limited movement of her lower extremities. Deep tendon reflexes 2+ throughout in upper and lower extremities. Cerebellar difficult to perform. Sensory was normal. IMPRESSION: The patient is a 63-year-old lady with multiple neurological issues. #1 seems to be the main reason for admission which is transient confusion with visual hallucinations. She had another episode of hallucinations this Thursday. In the absence of any chronic neurodegenerative disorder such as Parkinson disease or dementia, these hallucinations could be more of a psychiatric presentation than neurological. Her CT and MRI are negative for any acute stroke. On examination, we found that she has generalized muscle weakness, more so in the lower extremities than upper extremity, and this is likely chronic, but the cause has not been established. The patient has not seen a neurologist so far. I would like to rule out possibility of cervical myelopathy or chronic transverse myelitis in this patient. TREATMENT PLAN: MRI of the C-spine was ordered. I will follow up the patient again tomorrow with you. Job ID: [id number]
[2019-01-15] MEDS: DULoxetine 30 MG CAP PO SCH (09:01)
[2019-01-15] MEDS: Escitalopram Oxalate 10 mg Tablet PO SCH (09:02)
[2019-01-15] MEDS: Famotidine 20 MG TAB PO SCH ×2 (09:02→20:36)
[2019-01-15] MEDS: Losartan 25 MG TAB PO SCH (09:02)
[2019-01-15] MEDS: Aspirin 81 mg Enteric Coated Tablet PO SCH (09:02)
[2019-01-15] MEDS: ALPRAZolam 0.25 MG TAB PO PRN ×3 (09:03→22:37)
--- NOTE | 2019-01-15 11:49 | PDOC.PN ---
- Subjective Encounter Start Date: 01/15/19 Encounter Start Time: 09:40 Subjective: no new complaints -: couldn't walk much with PT yesterday -: is on special diet due to asp risk - Objective Resuscitation Status - Order Detail: 01/13/19 22:39 Resuscitation Status Routine Resuscitation Status: FULL: Full Resuscitation MAR Reviewed: Yes Vital Signs & Weight: Vital Signs (12 hours) Temp Pulse Resp BP BP Pulse Ox 01/15/19 07:32 97.3 F L 83 16 129/93 H 95 01/15/19 07:30 95 01/15/19 04:00 97.5 F L 69 16 114/79 95 Weight Weight 115 lb 1.6 oz I&O: 01/14/19 01/15/19 01/16/19 06:59 06:59 07:59 Intake Total 400 810 300 Balance 400 810 300 Result Diagrams: 01/14/19 05:25 01/14/19 05:25 Phys Exam - Physical Examination HEENT: PERRLA, moist MMs Neck: no JVD, supple Respiratory: no wheezing, no rales Cardiovascular: RRR, no significant murmur Gastrointestinal: soft, non-tender, positive bowel sounds Musculoskeletal: no edema, pulses present Neurological: non-focal, moves all 4 limbs Psychiatric: A&O x 3 Dx/Plan (1) TIA (transient ischemic attack) Code(s): G45.9 - TRANSIENT CEREBRAL ISCHEMIC ATTACK, UNSPECIFIED Status: Resolved (2) Chronic dislocation of left shoulder Code(s): M24.412 - RECURRENT DISLOCATION, LEFT SHOULDER Status: Chronic (3) Osteoarthritis Code(s): M19.90 - UNSPECIFIED OSTEOARTHRITIS, UNSPECIFIED SITE Status: Chronic Qualifiers: Osteoarthritis location: multiple joints Osteoarthritis type: primary Qualified Code(s): M15.0 - Primary generalized (osteo)arthritis (4) Recurrent falls Code(s): R29.6 - REPEATED FALLS Status: Chronic (5) Physical deconditioning Code(s): R53.81 - OTHER MALAISE Status: Acute (6) Chronic pain disorder Code(s): G89.4 - CHRONIC PAIN SYNDROME Status: Chronic (7) HTN (hypertension) Code(s): I10 - ESSENTIAL (PRIMARY) HYPERTENSION Status: Chronic Qualifiers: Hypertension type: essential hypertension Qualified Code(s): I10 - Essential (primary) hypertension (8) RBBB Code(s): I45.10 - UNSPECIFIED RIGHT BUNDLE-BRANCH BLOCK Status: Chronic (9) H/O chronic hepatitis Code(s): Z87.19 - PERSONAL HISTORY OF OTHER DISEASES OF THE DIGESTIVE SYSTEM Status: Chronic Comment: ?hepatitis C - Plan hemostable -: MRI cpine results noted -: awaiting rehab/swing bed for dc plan -: to amb with PT as tolerated -: continue asp, lipitor, cozaar * . Review of Systems - Medications/Allergies Allergies/Adverse Reactions: Allergies Allergy/AdvReac Type Severity Reaction Status Date / Time Penicillins Allergy Verified 03/08/18 01:52 Medications: Current Medications Acetaminophen (Tylenol) 1,000 mg PO Q6H PRN PRN Reason: Mild Pain (1-3) Alprazolam (Xanax) 0.25 mg PO Q6H PRN PRN Reason: Anxiety Last Admin: 01/15/19 09:03 Dose: 0.25 mg Aspirin (Ecotrin) 81 mg PO DAILY [facility] Last Admin: 01/15/19 09:02 Dose: 81 mg Atorvastatin Calcium (Lipitor) 40 mg PO HS [facility] Last Admin: 01/14/19 19:49 Dose: 40 mg Duloxetine HCl (Cymbalta) 30 mg PO DAILY [facility] Last Admin: 01/15/19 09:01 Dose: Not Given Escitalopram Oxalate (Lexapro) 10 mg PO DAILY [facility] Last Admin: 01/15/19 09:02 Dose: 10 mg Famotidine (Pepcid) 20 mg PO BID [facility] Last Admin: 01/15/19 09:02 Dose: 20 mg Hydralazine HCl (Apresoline) 10 mg SLOW IVP Q4H PRN PRN Reason: BP > 220/110 Losartan Potassium (Cozaar) 25 mg PO DAILY [facility] Last Admin: 01/15/19 09:02 Dose: 25 mg Mirabegron (Myrbetriq Er) 50 mg PO DAILY [facility] Last Admin: 01/15/19 09:02 Dose: 50 mg Nicotine (Nicoderm Patch) 21 mg TOP Q24HR [facility] Last Admin: 01/14/19 15:27 Dose: 21 mg Ondansetron HCl (Zofran Odt) 4 mg PO Q6H PRN PRN Reason: Nausea/Vomiting Ondansetron HCl (Zofran) 4 mg IVP Q6H PRN PRN Reason: Nausea/Vomiting Sodium Chloride (Flush - Normal Saline) 10 ml IVF PRN PRN PRN Reason: Saline Flush
--- NOTE | 2019-01-15 13:03 | PRG ---
DATE OF SERVICE: 01/15/2019 CHIEF COMPLAINT: Weakness and hallucinations. INTERVAL HISTORY: The patient has not had any further hallucination. Her sister was in the room and she too stated the patient has not been strong for a number of years. Her workup as noted. Cervical scan MRI did not show any central canal or neuroforaminal stenosis. Cord signal was normal. There is no evidence of demyelination. She does have mild spondylosis of the spine. LABORATORY DATA: Her lab workup, no further labs are available today. PHYSICAL EXAMINATION: VITAL SIGNS: Temperature 97.3, pulse 83, respiratory rate 16, and blood pressure 129/93. NEUROLOGIC: Higher intellectual function, she knew the date. She was oriented to time, place, and person. Cranial nerves, mild facial asymmetry on the right side. Motor exam, her strength was 4/5 in upper extremities and in lower extremities on the left side, her strength was 3/5 and right was 2/5. Plantar flexion was stronger today. IMPRESSION: The patient with hallucinations twice this week and chronic neuromuscular weakness. Her MRI of the brain and neck are negative for any acute or chronic event in the central nervous system. The spinal cord did not show any spinal cord abnormalities or cervical stenosis sufficient to cause cord compression. It still remains unclear why she is so diffusely weak even though she is born with congenital hip dysplasia. It is unclear why she has upper extremity weakness. She needs further neurological workup including EMG and nerve conduction studies. She also failed her swallow study whether this lady has chronic myasthenia or neuromuscular dysfunction such as amyotrophic lateral sclerosis needs to be worked up further. TREATMENT PLAN: I agree with placement in rehab for improvement of her speech and her strength and potentially she can have EMG and nerve conduction today and also unfortunately the patient has not had a Neurology evaluation so far and I will follow up here on an as needed basis. Job ID: [id number]
[2019-01-15] MEDS: Nicotine 21 MG PATCH TOP SCH (13:37)
--- NOTE | 2019-01-15 19:29 | EKG ---
Test Reason : STROKE ALERT Blood Pressure : / mmHG Vent. Rate : 083 BPM Atrial Rate : 083 BPM P-R Int : 172 ms QRS Dur : 070 ms QT Int : 376 ms P-R-T Axes : 061 -10 036 degrees QTc Int : 441 ms Normal sinus rhythm Low voltage QRS Inferior infarct , age undetermined Cannot rule out Anterior infarct , age undetermined Abnormal ECG Confirmed by ANISH HI D.O. ([id number]), index editor NATALIYA GUIDO ([id number] on 01/15/2019 7:29:30 PM Referred By: Confirmed By:ANISH HI D.O.
[2019-01-15] MEDS: Atorvastatin Calcium 40 MG TAB PO SCH (20:36)
[2019-01-16] MEDS: DULoxetine 30 MG CAP PO SCH (09:24)
[2019-01-16] MEDS: Escitalopram Oxalate 10 mg Tablet PO SCH (09:24)
[2019-01-16] MEDS: Losartan 25 MG TAB PO SCH (09:24)
[2019-01-16] MEDS: Famotidine 20 MG TAB PO SCH ×2 (09:25→21:34)
[2019-01-16] MEDS: Aspirin 81 mg Enteric Coated Tablet PO SCH (09:25)
[2019-01-16] MEDS: ALPRAZolam 0.25 MG TAB PO PRN ×2 (10:54→18:08)
--- NOTE | 2019-01-16 13:51 | PDOC.PN ---
- Subjective Encounter Start Date: 01/16/19 Encounter Start Time: 09:35 Subjective: feels better -: is ambulating better with PT -: tolerating pureed diet - Objective Resuscitation Status - Order Detail: 01/13/19 22:39 Resuscitation Status Routine Resuscitation Status: FULL: Full Resuscitation MAR Reviewed: Yes Vital Signs & Weight: Vital Signs (12 hours) Temp Pulse Resp BP Pulse Ox 01/16/19 12:00 97.7 F 73 14 143/98 H 95 01/16/19 08:20 96 01/16/19 08:00 97.4 F L 76 14 138/91 H 96 01/16/19 04:00 97.4 F L 74 16 155/86 H 96 Weight Weight 123 lb 11.2 oz I&O: 01/15/19 01/16/19 01/17/19 05:59 06:59 06:59 Intake Total 100 Balance 100 Result Diagrams: 01/14/19 05:25 01/14/19 05:25 Phys Exam - Physical Examination HEENT: PERRLA, moist MMs Neck: no JVD, supple Respiratory: no wheezing, no rales Cardiovascular: RRR, no significant murmur Gastrointestinal: soft, non-tender, positive bowel sounds Musculoskeletal: no edema, pulses present Neurological: non-focal, 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 Psychiatric: normal affect, A&O x 3 Dx/Plan (1) TIA (transient ischemic attack) Code(s): G45.9 - TRANSIENT CEREBRAL ISCHEMIC ATTACK, UNSPECIFIED Status: Resolved (2) Chronic dislocation of left shoulder Code(s): M24.412 - RECURRENT DISLOCATION, LEFT SHOULDER Status: Chronic (3) Osteoarthritis Code(s): M19.90 - UNSPECIFIED OSTEOARTHRITIS, UNSPECIFIED SITE Status: Chronic Qualifiers: Osteoarthritis location: multiple joints Osteoarthritis type: primary Qualified Code(s): M15.0 - Primary generalized (osteo)arthritis (4) Recurrent falls Code(s): R29.6 - REPEATED FALLS Status: Chronic (5) Physical deconditioning Code(s): R53.81 - OTHER MALAISE Status: Acute (6) Chronic pain disorder Code(s): G89.4 - CHRONIC PAIN SYNDROME Status: Chronic (7) HTN (hypertension) Code(s): I10 - ESSENTIAL (PRIMARY) HYPERTENSION Status: Chronic Qualifiers: Hypertension type: essential hypertension Qualified Code(s): I10 - Essential (primary) hypertension (8) RBBB Code(s): I45.10 - UNSPECIFIED RIGHT BUNDLE-BRANCH BLOCK Status: Chronic (9) H/O chronic hepatitis Code(s): Z87.19 - PERSONAL HISTORY OF OTHER DISEASES OF THE DIGESTIVE SYSTEM Status: Chronic Comment: ?hepatitis C - Plan hemostable -: is slowly working with PT and ambulating in hallway -: awaiting rehab placement, may dc anytime if bed is available -: continue asp, lipitor, cozaar, cymbalta -: echo shows normal EF * . Review of Systems - Medications/Allergies Allergies/Adverse Reactions: Allergies Allergy/AdvReac Type Severity Reaction Status Date / Time Penicillins Allergy Verified 03/08/18 01:52 Medications: Current Medications Acetaminophen (Tylenol) 1,000 mg PO Q6H PRN PRN Reason: Mild Pain (1-3) Alprazolam (Xanax) 0.25 mg PO Q6H PRN PRN Reason: Anxiety Last Admin: 01/16/19 10:54 Dose: 0.25 mg Aspirin (Ecotrin) 81 mg PO DAILY [facility] Last Admin: 01/16/19 09:25 Dose: 81 mg Atorvastatin Calcium (Lipitor) 40 mg PO HS [facility] Last Admin: 01/15/19 20:36 Dose: 40 mg Duloxetine HCl (Cymbalta) 30 mg PO DAILY [facility] Last Admin: 01/16/19 09:24 Dose: Not Given Escitalopram Oxalate (Lexapro) 10 mg PO DAILY [facility] Last Admin: 01/16/19 09:24 Dose: 10 mg Famotidine (Pepcid) 20 mg PO BID [facility] Last Admin: 01/16/19 09:25 Dose: 20 mg Hydralazine HCl (Apresoline) 10 mg SLOW IVP Q4H PRN PRN Reason: BP > 220/110 Losartan Potassium (Cozaar) 25 mg PO DAILY [facility] Last Admin: 01/16/19 09:24 Dose: 25 mg Mirabegron (Myrbetriq Er) 50 mg PO DAILY [facility] Last Admin: 01/16/19 09:25 Dose: 50 mg Nicotine (Nicoderm Patch) 21 mg TOP Q24HR [facility] Last Admin: 01/15/19 13:37 Dose: 21 mg Ondansetron HCl (Zofran Odt) 4 mg PO Q6H PRN PRN Reason: Nausea/Vomiting Ondansetron HCl (Zofran) 4 mg IVP Q6H PRN PRN Reason: Nausea/Vomiting Sodium Chloride (Flush - Normal Saline) 10 ml IVF PRN PRN PRN Reason: Saline Flush Last Admin: 01/16/19 09:24 Dose: 10 ml
[2019-01-16] MEDS: Nicotine 21 MG PATCH TOP SCH (14:20)
[2019-01-16] MEDS: Acetaminophen 500 MG TAB PO PRN (18:07)
[2019-01-16] MEDS: Atorvastatin Calcium 40 MG TAB PO SCH (21:34)
[2019-01-17] MEDS: Acetaminophen 500 MG TAB PO PRN ×2 (00:10→14:18)
[2019-01-17] MEDS: ALPRAZolam 0.25 MG TAB PO PRN ×3 (00:10→17:38)
[2019-01-17] MEDS: Enoxaparin Sodium 40 MG/0.4 ML SYRINGE SC SCH (08:59)
[2019-01-17] MEDS: Losartan 25 MG TAB PO SCH (08:59)
[2019-01-17] MEDS: Famotidine 20 MG TAB PO SCH ×2 (08:59→21:05)
[2019-01-17] MEDS: Aspirin 81 mg Enteric Coated Tablet PO SCH (08:59)
[2019-01-17] MEDS: DULoxetine 30 MG CAP PO SCH (08:59)
[2019-01-17] MEDS: Escitalopram Oxalate 10 mg Tablet PO SCH (08:59)
[2019-01-17] MEDS: Nicotine 21 MG PATCH TOP SCH (14:12)
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
[2019-01-17] MEDS: Atorvastatin Calcium 40 MG TAB PO SCH (21:05)
[2019-01-18] MEDS: Acetaminophen 500 MG TAB PO PRN ×2 (05:29→18:18)
[2019-01-18] MEDS: Escitalopram Oxalate 10 mg Tablet PO SCH (09:10)
[2019-01-18] MEDS: Aspirin 81 mg Enteric Coated Tablet PO SCH (09:10)
[2019-01-18] MEDS: DULoxetine 30 MG CAP PO SCH (09:10)
[2019-01-18] MEDS: Losartan 25 MG TAB PO SCH (09:10)
[2019-01-18] MEDS: Famotidine 20 MG TAB PO SCH (09:11)
[2019-01-18] MEDS: Enoxaparin Sodium 40 MG/0.4 ML SYRINGE SC SCH (09:11)
[2019-01-18] MEDS: ALPRAZolam 0.25 MG TAB PO PRN ×3 (11:15→18:17)
[2019-01-18] MEDS: Nicotine 21 MG PATCH TOP SCH (12:18)
[2019-01-18 16:29] VITALS: BP 146/71; TEMP 98.1
--- NOTE | 2019-01-19 05:26 | DIS ---
DATE OF ADMISSION: 01/13/2019 DATE OF DISCHARGE: 01/18/2019 ADMISSION DIAGNOSIS: Transient ischemic attack. DISCHARGE DIAGNOSIS: Transient ischemic attack. HISTORY OF PRESENTING ILLNESS: This is a 63-year-old female who presented to the ER with a complaint of sudden onset of difficulty speaking and also walking, and this lasted for more than 15-20 minutes. The patient also had complaints , recurrent falls, [id number] blood pressures with their spikes and drops. The patient is chronically on Xanax and Lexapro. Also has a history of right-sided chronic Galvan palsy. On admission, a CT of the head was obtained which did not show any focus of infarction or hemorrhage. Carotid arteries did not show any significant stenosis. The patient was treated with aspirin and statin. The patient's echo showed an ejection fraction of 55% to 60% with diastolic dysfunction. Modified barium swallow, dysphagia and brain MRI was unremarkable. The patient subsequently did well with resolution of dysphagia, aphasia, and was able to walk 200 plus feet with the physical therapy. The patient was then discharged to the rehabilitation place to continue with the rehab. DISCHARGE INSTRUCTIONS: 1. The patient was advised to follow up with her primary care physician. 2. To take all the medications as prescribed. 3. To continue with PT, OT, and Speech. 4. Heart-healthy diet. Job ID: [id number]
== END 2019-01-18 18:44 | DRG 69 ==
LOC: ERS 16:06 → 2SE 19:20 → T4-B 01-16 23:26
PROVIDERS: ADMIT Emergency Medicine; ATTEND Emergency Medicine
DX: G45.9 Transient cerebral ischemic attack, unspecified (principal); G51.0 Bell's palsy; R29.715 NIHSS score 15; I10 Essential (primary) hypertension; G89.4 Chronic pain syndrome; M24.412 Recurrent dislocation, left shoulder; M15.0 Primary generalized (osteo)arthritis; Q65.89 Other specified congenital deformities of hip; I45.10 Unspecified right bundle-branch block; J44.9 Chronic obstructive pulmonary disease, unspecified; F17.210 Nicotine dependence, cigarettes, uncomplicated; F32.9 Major depressive disorder, single episode, unspecified; F41.9 Anxiety disorder, unspecified; R29.6 Repeated falls; Z86.14 Personal history of Methicillin resistant Staphylococcus aureus infection; Z86.19 Personal history of other infectious and parasitic diseases; Z88.0 Allergy status to penicillin
CPT/HCPCS: 36415; 51701; 70450; 70496; 70498; 70551; 72141; 74230; 80048; 80053; 80061; 81003; 82550; 84484; 85007; 85025; 85027; 85610; 85730; 93005; 93306; J0360; J1650; Q9966

== ENCOUNTER 2019-10-05 14:45 | Emergency (ER) | payer MEDICARE, MEDICAID ==
--- NOTE | 2019-10-05 15:25 | RAD ---
Exam: XR Knee Lt 4 View STANDARD HISTORY: Left knee pain. COMPARISON: None FINDINGS: There is irregularity involving the middle one third diaphysis of the left femur incompletely imaged on the AP or lateral views, but this likely represents a remote healed fracture and deformity. An osseous excrescence cannot be entirely excluded. Osteopenia is present.. There is irregularity involving the posterior aspect of the tibial metaphysis noted on the lateral view which is likely related to osteophyte in this region. No acute fracture, dislocation, or other osseous abnormality is identified. A small joint effusion is present involving the suprapatellar bursa. IMPRESSION: 1. Findings likely related to remote healed fracture deformity involving the middle one third left fe moral diaphysis. However, this is incompletely evaluated on this exam. Follow-up views of the left femur are suggested. 2. Suprapatellar joint effusion. MRI may be beneficial to evaluate for internal derangement. 3. No acute fracture or dislocation is seen at the level of the left knee.
[2019-10-05] MEDS ORDERED: HYDROcodone/Acetaminophen 5/325 mg Tablet ONE (16:06)
[2019-10-05] MEDS ORDERED: Ketorolac Tromethamine 30 MG/ML VIAL ONE (16:07)
--- NOTE | 2019-10-05 16:44 | CT ---
EXAM: CT left knee without contrast HISTORY: Left knee pain after hearing a pop when stepping on a shoe. COMPARISON: None TECHNIQUE: Multiple contiguous axial images were obtained and a CT of the left knee without contrast. Sagittal and coronal reformats were performed. FINDINGS: A moderate knee effusion is seen. No fracture or dislocation are seen. The posterior crucia te ligament appears redundant. The anterior cruciate ligament cannot be definitely seen on this exam. The quadriceps tendon and patellar tendon are intact. The medial collateral ligament and latera l collateral ligament complex appear grossly intact. IMPRESSION: 1. No evidence of fracture. 2. A knee effusion is seen and the ACL cannot be definitely seen. An ACL tear cannot be excluded and an MRI would need to be performed if the patient has an anterior drawer sign.
== END 2019-10-05 15:07 | disposition home or self-care (01) ==
LOC: ERS 14:45
DX: M25.462 Effusion, left knee (principal); J44.9 Chronic obstructive pulmonary disease, unspecified; F41.9 Anxiety disorder, unspecified; I10 Essential (primary) hypertension; F32.9 Major depressive disorder, single episode, unspecified; F17.210 Nicotine dependence, cigarettes, uncomplicated
CPT/HCPCS: 96372; J1885

== ENCOUNTER 2020-02-05 00:41 | Emergency (ER) | payer MEDICARE, MEDICAID ==
--- NOTE | 2020-02-05 09:20 | RAD ---
RIGHT SHOULDER THREE VIEWS: HISTORY: Shoulder pain. FINDINGS: No evidence of fracture. Mild degenerative change at the AC joint. Calcification over the humeral hea d may represent calcific tendinosis. Mild degenerative change at the glenohumeral joint. IMPRESSION: 1. No acute process. 2. Degenerative changes as described with evidence of calcific tendinosis. POS: AGW
--- NOTE | 2020-02-05 09:23 | RAD ---
RIGHT HUMERUS TWO VIEWS: HISTORY: Shoulder pain. FINDINGS: Mild degenerative change at the shoulder. Calcification over the humeral head may represent calcific tendinosis. There is degenerative spurring at the AC joint. The humerus shows no evidence of fracture. There is a linear metallic foreign body, consistent with a soft tissue needle or other metallic foreign body, seen in the soft tissues adjacent to the distal h umeral diaphysis. This measures approximately 1.5 cm in length. There is an area of sclerosis overlying the distal humerus, which cannot be adequately characterized on this exam. This has a benign appearance and is presumably osseous in nature. There are degenerativ e changes at the elbow. IMPRESSION: 1. Degenerative change at the shoulder and elbow. An indeterminate sclerotic density overlies the dis merlyn humerus. 2. A linear metallic soft tissue foreign body adjacent to the distal humeral diaphysis. POS: AGW
== END 2020-02-05 01:27 | disposition home or self-care (01) ==
LOC: ERS 00:41
DX: M25.511 Pain in right shoulder (principal); I10 Essential (primary) hypertension; M19.90 Unspecified osteoarthritis, unspecified site; F32.9 Major depressive disorder, single episode, unspecified; F17.210 Nicotine dependence, cigarettes, uncomplicated; Z79.899 Other long term (current) drug therapy; W18.30XA Fall on same level, unspecified, initial encounter

== ENCOUNTER 2021-07-17 21:58 | Inpatient (IN) | payer MEDICARE, MEDICAID ==
[2021-07-17 22:36] LABS: #Basophils 0.1 thou/uL (0.0-0.2); #Eosinphils 0.2 thou/uL (0.0-0.7); #Monocytes 0.4 thou/uL (0.11-0.59); #Neutrophils 5.2 thou/uL (1.40-6.50); %Basophils 1.3 % (0.0-1.0); %Eosinophils 2.8 % (0.0-10.0); %Lymphocytes 33.6 % (21.0-51.0); %Monocytes 3.9 % (0.0-10.0); %Neutrophils 58.5 % (42.0-75.0); Mean Corpuscular HGB CONC 32.1 g/dL (32.0-36.0); Mean Corpuscular Hemoglobin 29.7 pg (27.0-31.0); Mean Corpuscular Volume 92.6 fL (78.0-98.0); Mean Platelet Volume 9.5 fL (7.4-10.4); Platelet Count 214 thou/uL (130-400); RBC Distribution Width 13.5 % (11.5-14.5); Red Blood Cell (RBC) Count 4.37 mill/uL (4.20-5.40); White Blood Cell (WBC) Count 8.9 thou/uL (4.8-10.8)
[2021-07-17] MEDS ORDERED: Ketorolac Tromethamine 30 MG/ML VIAL ONE (22:40)
[2021-07-17] MEDS ORDERED: Ondansetron PF 4 MG/2 ML Vial ONE (22:40)
[2021-07-17] MEDS ORDERED: Morphine 10 MG/ML VIAL ONE (22:40)
[2021-07-17] MEDS ORDERED: Acetaminophen 500 MG TAB ONE (22:57)
[2021-07-17 22:59] LABS: ALT (SGPT) 15 U/L (8-55); AST (SGOT) 20 U/L (5-34); Albumin 3.9 g/dL (3.4-4.8); Alkaline Phosphatase 78 U/L (40-110); Anion Gap 16 mmol/L (10-20); BUN (Urea Nitrogen) 25 mg/dL (9.8-20.1); Bilirubin, Total 0.2 mg/dL (0.2-1.2); Calc. Creatinine Clearance 0 mL/min (70-130); Calcium 9.1 mg/dL (7.8-10.44); Carbon Dioxide 18 mmol/L (23-31); Chloride 103 mmol/L (98-107); Globulin 2.9 g/dL (2.4-3.5); Glucose 98 mg/dL (80-115); Potassium 3.9 mmol/L (3.5-5.1); Protein, Total 6.8 g/dL (5.8-8.1); Sodium 133 mmol/L (136-145)
[2021-07-17] MEDS ORDERED: Ketamine 50 MG/ML (10ML VIAL) ONE (23:28)
[2021-07-18] MEDS ORDERED: Fentanyl 100 MCG/2 ML VIAL ONE ×3 (00:07→06:11)
[2021-07-18] MEDS ORDERED: Dextrose 50% Abboject 50 ML SYRINGE SLOW IVP PRN (02:44)
[2021-07-18] MEDS ORDERED: Dextrose 5% in Water 1,000 ML IV PRN (02:44)
[2021-07-18] MEDS ORDERED: Morphine 2 MG/ML VIAL SLOW IVP PRN (02:44)
[2021-07-18] MEDS ORDERED: Ondansetron PF 4 MG/2 ML Vial IVP PRN (02:44)
[2021-07-18] MEDS ORDERED: hydrALAZINE 20 MG/ML VIAL SLOW IVP PRN (02:44)
[2021-07-18] MEDS ORDERED: Sodium Chloride 0.9% 1,000 ML IV SCH (02:45)
[2021-07-18] MEDS ORDERED: Morphine 4 MG/ML VIAL ONE (02:55)
[2021-07-18] MEDS ORDERED: Cyclobenzaprine 10 MG TAB PO PRN (03:04)
[2021-07-18] MEDS ORDERED: traMADol HCl 50 MG TAB PO PRN (03:05)
[2021-07-18 03:51] LABS: Phosphorus 3.1 mg/dL (2.3-4.7)
[2021-07-18 03:53] LABS: Magnesium 1.6 mg/dL (1.6-2.6)
[2021-07-18] MEDS ORDERED: SUGAMMADEX SODIUM 200 MG/2 ML VIAL ONE ×2 (05:25→05:49)
[2021-07-18] MEDS ORDERED: PHENYLEPHRINE-NS 100 MCG/ML 10 ML SYRINGE ONE (05:36)
[2021-07-18] MEDS ORDERED: Rocuronium Bromide 10 MG/ML (10ML VIAL) ONE (05:36)
[2021-07-18] MEDS ORDERED: Ondansetron PF 4 MG/2 ML Vial ONE (05:36)
[2021-07-18] MEDS ORDERED: Dexamethasone 20 MG/5 ML VIAL ONE (05:36)
[2021-07-18] MEDS ORDERED: Lidocaine 1% PF 5 ML VIAL ONE (05:36)
[2021-07-18] MEDS ORDERED: Ketorolac Tromethamine 30 MG/ML VIAL ONE (06:07)
[2021-07-18 06:44] LABS: SARS-CoV-2 NAA Rapid Test Not Detected (NotDetected)
[2021-07-18] MEDS: Ketorolac Tromethamine 30 MG/ML VIAL IVP SCH ×2 (08:27→12:45)
[2021-07-18] MEDS: traMADol HCl 50 MG TAB PO SCH ×2 (08:27→09:16)
[2021-07-18] MEDS: Acetaminophen 500 MG TAB PO SCH ×2 (08:27→11:30)
[2021-07-18] MEDS ORDERED: Famotidine 20 MG TAB PO SCH (09:00)
[2021-07-18] MEDS ORDERED: Polyethylene Glycol 3350 17 GM Packet PO SCH (09:00)
[2021-07-18] MEDS ORDERED: Senokot S 8.6-50 MG TAB PO SCH (09:00)
[2021-07-18 11:32] VITALS: BMI 22.2
[2021-07-18 12:04] VITALS: BP 142/91; TEMP 98.4
== END 2021-07-18 12:50 | disposition home or self-care (01) | DRG 560 ==
LOC: ERS 21:58 → SURG A 07-18 02:44
PROVIDERS: ADMIT Specialist; ATTEND Specialist
PROC: 0QS7XZZ Reposition Left Upper Femur, External Approach (ICD-10-PCS; principal; 2021-07-18)
DX: T84.021A Dislocation of internal left hip prosthesis, initial encounter (principal); S73.015A Posterior dislocation of left hip, initial encounter; Z20.822 Contact with and (suspected) exposure to COVID-19; I10 Essential (primary) hypertension; Z96.643 Presence of artificial hip joint, bilateral; F41.9 Anxiety disorder, unspecified; M41.9 Scoliosis, unspecified; F17.210 Nicotine dependence, cigarettes, uncomplicated; W18.30XA Fall on same level, unspecified, initial encounter; Z88.0 Allergy status to penicillin
CPT/HCPCS: 36415; 71045; 72170; 76000; 80053; 83735; 84100; 85025; G0390; J1100; J1885; J2270; J2405; J3010; U0002

== ENCOUNTER 2022-08-29 17:00 | Inpatient (IN) | payer OTHER, MEDICAID ==
[2022-08-29 17:48] LABS: #Basophils 0.1 thou/uL (0.0-0.2); #Eosinphils 0.1 thou/uL (0.0-0.7); #Lymphocytes 2.8 thou/uL (1.20-3.40); #Monocytes 0.7 thou/uL (0.11-0.59); #Neutrophils 9.2 thou/uL (1.40-6.50); %Eosinophils 0.5 % (0.0-10.0); %Lymphocytes 21.8 % (21.0-51.0); %Neutrophils 71.7 % (42.0-75.0); Hemoglobin 12.6 g/dL (12.0-16.0); Mean Corpuscular HGB CONC 32.8 g/dL (32.0-36.0); Mean Corpuscular Hemoglobin 31.7 pg (27.0-31.0); Mean Corpuscular Volume 96.9 fL (78.0-98.0); Mean Platelet Volume 10.2 fL (7.4-10.4); Platelet Count 275 thou/uL (130-400); RBC Distribution Width 12.7 % (11.5-14.5); Red Blood Cell (RBC) Count 3.95 mill/uL (4.20-5.40); White Blood Cell (WBC) Count 12.9 thou/uL (4.8-10.8)
[2022-08-29 18:09] LABS: ALT (SGPT) 18 U/L (8-55); AST (SGOT) 31 U/L (5-34); Albumin 4.4 g/dL (3.4-4.8); Alkaline Phosphatase 134 U/L (40-110); Anion Gap 18 mmol/L (10-20); BUN (Urea Nitrogen) 19 mg/dL (9.8-20.1); Bilirubin, Total 0.4 mg/dL (0.2-1.2); CK (CPK) 164 U/L (29-168); Calc. Creatinine Clearance 0 mL/min (70-130); Calcium 9.6 mg/dL (7.8-10.44); Carbon Dioxide 21 mmol/L (23-31); Chloride 98 mmol/L (98-107); Estimated GFR 93; Globulin 2.9 g/dL (2.4-3.5); Glucose 96 mg/dL (80-115); Potassium 4.1 mmol/L (3.5-5.1); Protein, Total 7.3 g/dL (5.8-8.1); Sodium 133 mmol/L (136-145)
[2022-08-29] MEDS ORDERED: Ketamine 50 MG/ML (10ML VIAL) ONE (19:33)
[2022-08-30] MEDS ORDERED: Dextrose 5% in Water 1,000 ML IV PRN (00:09)
[2022-08-30] MEDS ORDERED: TETANUS, DIPHTHERIA TOX,ADULT (TDVAX) 0.5 ML VIAL IM ONE (00:09)
[2022-08-30] MEDS ORDERED: Dextrose 50% Abboject 50 ML SYRINGE SLOW IVP PRN (00:09)
[2022-08-30] MEDS ORDERED: Morphine 2 MG/ML VIAL SLOW IVP PRN (00:09)
[2022-08-30] MEDS: traMADol HCl 50 MG TAB PO SCH ×5 (01:04→23:58)
[2022-08-30] MEDS: hydrALAZINE 20 MG/ML VIAL SLOW IVP PRN ×3 (01:04→16:32)
[2022-08-30] MEDS: Acetaminophen 500 MG TAB PO SCH ×5 (01:05→23:58)
[2022-08-30] MEDS: Morphine 4 MG/ML VIAL SLOW IVP PRN ×2 (01:20→07:22)
[2022-08-30] MEDS: Ondansetron PF 4 MG/2 ML Vial IVP PRN ×2 (02:56→09:38)
[2022-08-30 03:28] LABS: Bacteria/HPF None Seen HPF (None Seen); Bilirubin Negative (Negative); Blood, Urine Negative (Negative); Clarity Clear (Clear); Glucose, Urine (Dipstick) Normal (Negative); Ketone, Urine Negative (Negative); Leukocyte 75 Leu/uL (Negative); Nitrite Negative (Negative); Protein, Urine (Dipstick) Negative (Neg-Trace); RBC/HPF 0-3 HPF (0-3); Specific Gravity, Urine 1.019 (1.002-1.036); Squamous Epithelial 0-3 HPF (0-3); Urobilinogen Normal mg/dL (Less than 2); pH, Urine 5.5 (5.0-9.0)
[2022-08-30 03:29] LABS: Urine Culture Reflex Yes Yes
[2022-08-30 04:18] LABS: SARS-CoV-2 NAA Rapid Test Not Detected (NotDetected)
[2022-08-30] MEDS: Senokot S 8.6-50 MG TAB PO SCH ×2 (08:29→21:00)
[2022-08-30] MEDS: Famotidine 20 MG TAB PO SCH ×2 (08:30→21:00)
[2022-08-30] MEDS: Polyethylene Glycol 3350 17 GM Packet PO SCH (08:31)
[2022-08-30] MEDS ORDERED: Prevnar 13-Val Conj/PF 0.5 ML SYRINGE IM ONE (09:00)
[2022-08-30] MEDS ORDERED: cloNIDine 0.1 MG TAB PO PRN (09:09)
[2022-08-30] MEDS: Scopolamine 1.5 mg/72 hour Patch TD SCH (09:42)
[2022-08-30] MEDS ORDERED: Boostrix 0.5 ML (Tdap) VIAL (>/=7 yrs of age) IM ONE (12:15)
[2022-08-30] MEDS ORDERED: cloNIDine 0.1 MG TAB PO SCH (18:30)
[2022-08-30] MEDS: Gabapentin 100 MG CAP PO SCH (21:00)
[2022-08-30] MEDS: Trospium 20 MG TAB PO SCH (21:00)
[2022-08-30] MEDS: Atorvastatin Calcium 40 MG TAB PO SCH (21:01)
[2022-08-30] MEDS: cloNIDine 0.1 MG TAB PO SCH (21:01)
[2022-08-31] MEDS: cloNIDine 0.1 MG TAB PO SCH ×4 (02:23→20:58)
[2022-08-31] MEDS: Acetaminophen 500 MG TAB PO SCH ×3 (06:13→17:50)
[2022-08-31] MEDS: traMADol HCl 50 MG TAB PO SCH ×3 (06:13→17:51)
[2022-08-31] MEDS: DULoxetine 30 MG CAP PO SCH (08:55)
[2022-08-31] MEDS: Escitalopram Oxalate 10 mg Tablet PO SCH (08:55)
[2022-08-31] MEDS: Polyethylene Glycol 3350 17 GM Packet PO SCH (08:55)
[2022-08-31] MEDS: Famotidine 20 MG TAB PO SCH ×2 (08:55→20:47)
[2022-08-31] MEDS: Senokot S 8.6-50 MG TAB PO SCH ×2 (08:55→20:47)
[2022-08-31] MEDS: Gabapentin 100 MG CAP PO SCH ×3 (08:56→20:48)
[2022-08-31] MEDS ORDERED: Losartan 25 MG TAB PO SCH (09:00)
[2022-08-31] MEDS: Atorvastatin Calcium 40 MG TAB PO SCH (20:46)
[2022-08-31] MEDS: Trospium 20 MG TAB PO SCH (20:54)
[2022-08-31] MEDS: ALPRAZolam 0.25 MG TAB PO PRN (20:55)
[2022-08-31] MEDS: traMADol HCl 50 MG TAB PO PRN (20:55)
[2022-08-31] MEDS: Enoxaparin Sodium 40 MG/0.4 ML SYRINGE SC SCH (20:56)
[2022-09-01] MEDS: Acetaminophen 500 MG TAB PO SCH ×4 (01:19→17:40)
[2022-09-01] MEDS: traMADol HCl 50 MG TAB PO SCH ×4 (01:19→17:41)
[2022-09-01] MEDS: cloNIDine 0.1 MG TAB PO SCH ×4 (01:21→20:43)
[2022-09-01] MEDS: Famotidine 20 MG TAB PO SCH ×2 (08:38→20:43)
[2022-09-01] MEDS: Escitalopram Oxalate 10 mg Tablet PO SCH (08:39)
[2022-09-01] MEDS: Gabapentin 100 MG CAP PO SCH ×3 (08:39→20:43)
[2022-09-01] MEDS: DULoxetine 30 MG CAP PO SCH (08:40)
[2022-09-01] MEDS: Losartan 25 MG TAB PO SCH (08:53)
[2022-09-01] MEDS: Polyethylene Glycol 3350 17 GM Packet PO SCH (08:53)
[2022-09-01] MEDS: Senokot S 8.6-50 MG TAB PO SCH ×2 (08:54→20:44)
[2022-09-01 13:16] VITALS: BMI 20.6
[2022-09-01] MEDS: Enoxaparin Sodium 40 MG/0.4 ML SYRINGE SC SCH (20:42)
[2022-09-01] MEDS: Atorvastatin Calcium 40 MG TAB PO SCH (20:42)
[2022-09-01] MEDS: Trospium 20 MG TAB PO SCH (20:43)
[2022-09-01] MEDS: ALPRAZolam 0.25 MG TAB PO PRN (20:43)
[2022-09-02] MEDS: Acetaminophen 500 MG TAB PO SCH ×4 (01:00→17:47)
[2022-09-02] MEDS: traMADol HCl 50 MG TAB PO SCH ×4 (01:00→17:48)
[2022-09-02] MEDS: cloNIDine 0.1 MG TAB PO SCH ×4 (01:01→21:25)
[2022-09-02] MEDS: Senokot S 8.6-50 MG TAB PO SCH ×2 (08:11→21:25)
[2022-09-02] MEDS: Polyethylene Glycol 3350 17 GM Packet PO SCH (08:11)
[2022-09-02] MEDS: Famotidine 20 MG TAB PO SCH ×2 (08:12→21:23)
[2022-09-02] MEDS: DULoxetine 30 MG CAP PO SCH (08:12)
[2022-09-02] MEDS: Gabapentin 100 MG CAP PO SCH ×3 (08:12→21:26)
[2022-09-02] MEDS: Escitalopram Oxalate 10 mg Tablet PO SCH (08:13)
[2022-09-02] MEDS: Scopolamine 1.5 mg/72 hour Patch TD SCH (08:14)
[2022-09-02] MEDS: Losartan 25 MG TAB PO SCH (08:16)
[2022-09-02] MEDS: hydrALAZINE 20 MG/ML VIAL SLOW IVP PRN (21:18)
[2022-09-02] MEDS: ALPRAZolam 0.25 MG TAB PO PRN (21:23)
[2022-09-02] MEDS: Enoxaparin Sodium 40 MG/0.4 ML SYRINGE SC SCH (21:23)
[2022-09-02] MEDS: Atorvastatin Calcium 40 MG TAB PO SCH (21:25)
[2022-09-02] MEDS: Trospium 20 MG TAB PO SCH (21:27)
[2022-09-03] MEDS: traMADol HCl 50 MG TAB PO SCH ×4 (01:10→18:33)
[2022-09-03] MEDS: Acetaminophen 500 MG TAB PO SCH ×4 (01:11→18:33)
[2022-09-03] MEDS: cloNIDine 0.1 MG TAB PO SCH ×2 (01:12→09:59)
[2022-09-03 08:40] LABS: #Basophils 0.1 thou/uL (0.0-0.2); #Eosinphils 0.3 thou/uL (0.0-0.7); #Lymphocytes 2.7 thou/uL (1.20-3.40); #Monocytes 0.4 thou/uL (0.11-0.59); #Neutrophils 2.9 thou/uL (1.40-6.50); %Basophils 2.3 % (0.0-1.0); %Eosinophils 4.6 % (0.0-10.0); %Lymphocytes 41.9 % (21.0-51.0); %Monocytes 6.3 % (0.0-10.0); %Neutrophils 44.9 % (42.0-75.0); Hemoglobin 11.7 g/dL (12.0-16.0); Mean Corpuscular HGB CONC 32.4 g/dL (32.0-36.0); Mean Corpuscular Hemoglobin 32.6 pg (27.0-31.0); Mean Platelet Volume 9.9 fL (7.4-10.4); Platelet Count 179 thou/uL (130-400); RBC Distribution Width 12.6 % (11.5-14.5); Red Blood Cell (RBC) Count 3.58 mill/uL (4.20-5.40); White Blood Cell (WBC) Count 6.5 thou/uL (4.8-10.8)
[2022-09-03 08:55] LABS: Anion Gap 11 mmol/L (10-20); BUN (Urea Nitrogen) 13 mg/dL (9.8-20.1); Calc. Creatinine Clearance 61 mL/min (70-130); Calcium 8.8 mg/dL (7.8-10.44); Carbon Dioxide 21 mmol/L (23-31); Chloride 100 mmol/L (98-107); Estimated GFR 99; Glucose 103 mg/dL (80-115); Magnesium 1.6 mg/dL (1.6-2.6); Phosphorus 2.9 mg/dL (2.3-4.7); Potassium 4.4 mmol/L (3.5-5.1); Sodium 128 mmol/L (136-145)
[2022-09-03] MEDS: Escitalopram Oxalate 10 mg Tablet PO SCH (09:54)
[2022-09-03] MEDS: Gabapentin 100 MG CAP PO SCH ×3 (09:55→21:22)
[2022-09-03] MEDS: DULoxetine 30 MG CAP PO SCH (09:56)
[2022-09-03] MEDS: Famotidine 20 MG TAB PO SCH ×2 (09:56→21:22)
[2022-09-03] MEDS: Polyethylene Glycol 3350 17 GM Packet PO SCH (09:57)
[2022-09-03] MEDS: Senokot S 8.6-50 MG TAB PO SCH ×2 (09:57→21:25)
[2022-09-03] MEDS ORDERED: Sodium Chloride 1 GM TAB PO SCH (10:30)
[2022-09-03] MEDS: ALPRAZolam 0.25 MG TAB PO PRN ×2 (12:11→21:21)
[2022-09-03] MEDS: Sodium Chloride 1 GM TAB PO SCH (18:34)
[2022-09-03] MEDS: Atorvastatin Calcium 40 MG TAB PO SCH (21:22)
[2022-09-03] MEDS: Trospium 20 MG TAB PO SCH (21:22)
[2022-09-03] MEDS: Enoxaparin Sodium 30 MG/0.3 ML SYRINGE SC SCH (21:32)
[2022-09-04] MEDS: traMADol HCl 50 MG TAB PO SCH ×5 (01:13→23:55)
[2022-09-04] MEDS: Acetaminophen 500 MG TAB PO SCH ×5 (01:13→23:56)
[2022-09-04] MEDS: Sodium Chloride 1 GM TAB PO SCH ×3 (02:53→18:05)
[2022-09-04 06:04] LABS: #Basophils 0.1 thou/uL (0.0-0.2); #Eosinphils 0.2 thou/uL (0.0-0.7); #Lymphocytes 2.4 thou/uL (1.20-3.40); #Monocytes 0.3 thou/uL (0.11-0.59); #Neutrophils 4.5 thou/uL (1.40-6.50); %Basophils 1.2 % (0.0-1.0); %Eosinophils 2.1 % (0.0-10.0); %Lymphocytes 32.1 % (21.0-51.0); %Monocytes 4.5 % (0.0-10.0); %Neutrophils 60.1 % (42.0-75.0); Hemoglobin 11.7 g/dL (12.0-16.0); Mean Corpuscular HGB CONC 33.1 g/dL (32.0-36.0); Mean Corpuscular Hemoglobin 32.6 pg (27.0-31.0); Mean Corpuscular Volume 98.7 fl (78.0-98.0); Mean Platelet Volume 10.4 fL (7.4-10.4); Platelet Count 175 thou/uL (130-400); RBC Distribution Width 12.6 % (11.5-14.5); Red Blood Cell (RBC) Count 3.59 mill/uL (4.20-5.40); White Blood Cell (WBC) Count 7.5 thou/uL (4.8-10.8)
[2022-09-04 06:36] LABS: Anion Gap 14 mmol/L (10-20); BUN (Urea Nitrogen) 18 mg/dL (9.8-20.1); Calc. Creatinine Clearance 64 mL/min (70-130); Calcium 9.4 mg/dL (7.8-10.44); Carbon Dioxide 20 mmol/L (23-31); Chloride 104 mmol/L (98-107); Estimated GFR 100; Glucose 91 mg/dL (80-115); Magnesium 1.7 mg/dL (1.6-2.6); Phosphorus 3.4 mg/dL (2.3-4.7); Potassium 3.9 mmol/L (3.5-5.1); Sodium 134 mmol/L (136-145)
[2022-09-04] MEDS: Gabapentin 100 MG CAP PO SCH ×3 (09:09→21:55)
[2022-09-04] MEDS: Famotidine 20 MG TAB PO SCH ×2 (09:09→21:54)
[2022-09-04] MEDS: Escitalopram Oxalate 10 mg Tablet PO SCH (09:10)
[2022-09-04] MEDS: DULoxetine 30 MG CAP PO SCH (09:10)
[2022-09-04] MEDS: Polyethylene Glycol 3350 17 GM Packet PO SCH (09:11)
[2022-09-04] MEDS: ALPRAZolam 0.25 MG TAB PO PRN (09:11)
[2022-09-04] MEDS: Senokot S 8.6-50 MG TAB PO SCH ×2 (09:12→21:55)
[2022-09-04] MEDS ORDERED: cloNIDine 0.1 MG TAB PO SCH (10:45)
[2022-09-04] MEDS ORDERED: Losartan 25 MG TAB PO SCH (15:00)
[2022-09-04] MEDS: cloNIDine 0.1 MG TAB PO SCH ×2 (18:18→23:56)
[2022-09-04] MEDS: Trospium 20 MG TAB PO SCH (21:54)
[2022-09-04] MEDS: Atorvastatin Calcium 40 MG TAB PO SCH (21:54)
[2022-09-04] MEDS: Enoxaparin Sodium 30 MG/0.3 ML SYRINGE SC SCH (21:55)
[2022-09-05] MEDS: Sodium Chloride 1 GM TAB PO SCH ×3 (01:46→17:38)
[2022-09-05] MEDS: traMADol HCl 50 MG TAB PO SCH ×3 (05:36→17:38)
[2022-09-05] MEDS: cloNIDine 0.1 MG TAB PO SCH ×3 (05:37→17:39)
[2022-09-05] MEDS: Acetaminophen 500 MG TAB PO SCH ×3 (05:37→17:37)
[2022-09-05] MEDS ORDERED: Losartan 25 MG TAB PO SCH ×3 (09:00→14:00)
[2022-09-05] MEDS: Famotidine 20 MG TAB PO SCH ×2 (09:47→20:19)
[2022-09-05] MEDS: Gabapentin 100 MG CAP PO SCH ×3 (09:47→20:19)
[2022-09-05] MEDS: Losartan 25 MG TAB PO SCH (09:47)
[2022-09-05] MEDS: DULoxetine 30 MG CAP PO SCH (09:47)
[2022-09-05] MEDS: ALPRAZolam 0.25 MG TAB PO PRN ×2 (09:49→20:19)
[2022-09-05] MEDS: Scopolamine 1.5 mg/72 hour Patch TD SCH (09:49)
[2022-09-05] MEDS: Polyethylene Glycol 3350 17 GM Packet PO SCH (09:49)
[2022-09-05] MEDS: Senokot S 8.6-50 MG TAB PO SCH ×2 (10:35→20:19)
[2022-09-05] MEDS: Escitalopram Oxalate 10 mg Tablet PO SCH (10:35)
[2022-09-05] MEDS: traMADol HCl 50 MG TAB PO PRN (13:50)
[2022-09-05] MEDS: Atorvastatin Calcium 40 MG TAB PO SCH (20:19)
[2022-09-05] MEDS: Trospium 20 MG TAB PO SCH (20:19)
[2022-09-05] MEDS: Enoxaparin Sodium 30 MG/0.3 ML SYRINGE SC SCH (20:19)
[2022-09-06] MEDS: traMADol HCl 50 MG TAB PO SCH ×4 (00:07→17:35)
[2022-09-06] MEDS: Acetaminophen 500 MG TAB PO SCH ×4 (00:07→17:35)
[2022-09-06] MEDS: Sodium Chloride 1 GM TAB PO SCH ×3 (00:07→17:35)
[2022-09-06] MEDS: cloNIDine 0.1 MG TAB PO SCH ×4 (00:08→17:35)
[2022-09-06 06:37] LABS: Anion Gap 12 mmol/L (10-20); BUN (Urea Nitrogen) 17 mg/dL (9.8-20.1); Calc. Creatinine Clearance 67 mL/min (70-130); Calcium 9.5 mg/dL (7.8-10.44); Carbon Dioxide 21 mmol/L (23-31); Chloride 106 mmol/L (98-107); Estimated GFR 101; Glucose 96 mg/dL (80-115); Magnesium 1.7 mg/dL (1.6-2.6); Phosphorus 4.8 mg/dL (2.3-4.7); Potassium 4.6 mmol/L (3.5-5.1); Sodium 134 mmol/L (136-145)
[2022-09-06] MEDS: Losartan 25 MG TAB PO SCH (09:03)
[2022-09-06] MEDS: Polyethylene Glycol 3350 17 GM Packet PO SCH (09:04)
[2022-09-06] MEDS: Senokot S 8.6-50 MG TAB PO SCH ×2 (09:05→20:18)
[2022-09-06] MEDS: Escitalopram Oxalate 10 mg Tablet PO SCH (09:05)
[2022-09-06] MEDS: Famotidine 20 MG TAB PO SCH ×2 (09:05→20:19)
[2022-09-06] MEDS: Gabapentin 100 MG CAP PO SCH ×3 (09:05→20:18)
[2022-09-06] MEDS: DULoxetine 30 MG CAP PO SCH (09:05)
[2022-09-06] MEDS: traMADol HCl 50 MG TAB PO PRN (09:11)
[2022-09-06] MEDS: Enoxaparin Sodium 30 MG/0.3 ML SYRINGE SC SCH (20:18)
[2022-09-06] MEDS: Atorvastatin Calcium 40 MG TAB PO SCH (20:18)
[2022-09-06] MEDS: ALPRAZolam 0.25 MG TAB PO PRN (20:18)
[2022-09-06] MEDS: Trospium 20 MG TAB PO SCH (20:19)
[2022-09-07] MEDS: Acetaminophen 500 MG TAB PO SCH ×4 (00:12→17:54)
[2022-09-07] MEDS: traMADol HCl 50 MG TAB PO SCH ×4 (00:12→17:54)
[2022-09-07] MEDS: cloNIDine 0.1 MG TAB PO SCH ×4 (00:12→17:54)
[2022-09-07] MEDS: Sodium Chloride 1 GM TAB PO SCH ×3 (03:13→17:54)
[2022-09-07] MEDS: Escitalopram Oxalate 10 mg Tablet PO SCH (09:41)
[2022-09-07] MEDS: DULoxetine 30 MG CAP PO SCH (09:41)
[2022-09-07] MEDS: Gabapentin 100 MG CAP PO SCH ×3 (09:41→19:42)
[2022-09-07] MEDS: Losartan 25 MG TAB PO SCH (09:41)
[2022-09-07] MEDS: Famotidine 20 MG TAB PO SCH ×2 (09:41→19:42)
[2022-09-07] MEDS: Senokot S 8.6-50 MG TAB PO SCH ×2 (09:42→19:43)
[2022-09-07] MEDS: Polyethylene Glycol 3350 17 GM Packet PO SCH (09:42)
[2022-09-07] MEDS: Trospium 20 MG TAB PO SCH (19:42)
[2022-09-07] MEDS: Atorvastatin Calcium 40 MG TAB PO SCH (19:42)
[2022-09-07] MEDS: Enoxaparin Sodium 30 MG/0.3 ML SYRINGE SC SCH (19:42)
[2022-09-07] MEDS: ALPRAZolam 0.25 MG TAB PO PRN (19:46)
[2022-09-08] MEDS: Sodium Chloride 1 GM TAB PO SCH ×3 (00:47→18:36)
[2022-09-08] MEDS: traMADol HCl 50 MG TAB PO SCH ×4 (00:47→18:36)
[2022-09-08] MEDS: Acetaminophen 500 MG TAB PO SCH ×4 (00:47→18:36)
[2022-09-08] MEDS: cloNIDine 0.1 MG TAB PO SCH ×4 (00:47→18:36)
[2022-09-08] MEDS: Senokot S 8.6-50 MG TAB PO SCH ×2 (08:38→20:08)
[2022-09-08] MEDS: DULoxetine 30 MG CAP PO SCH (08:38)
[2022-09-08] MEDS: Gabapentin 100 MG CAP PO SCH ×3 (08:38→20:08)
[2022-09-08] MEDS: Losartan 25 MG TAB PO SCH (08:39)
[2022-09-08] MEDS: Escitalopram Oxalate 10 mg Tablet PO SCH (08:39)
[2022-09-08] MEDS: Scopolamine 1.5 mg/72 hour Patch TD SCH (08:40)
[2022-09-08] MEDS: Polyethylene Glycol 3350 17 GM Packet PO SCH (10:13)
[2022-09-08] MEDS: ALPRAZolam 0.25 MG TAB PO PRN ×2 (12:52→20:08)
[2022-09-08] MEDS: Enoxaparin Sodium 30 MG/0.3 ML SYRINGE SC SCH (20:07)
[2022-09-08] MEDS: Trospium 20 MG TAB PO SCH (20:08)
[2022-09-08] MEDS: Atorvastatin Calcium 40 MG TAB PO SCH (20:08)
[2022-09-09] MEDS: traMADol HCl 50 MG TAB PO SCH ×3 (00:56→14:07)
[2022-09-09] MEDS: cloNIDine 0.1 MG TAB PO SCH ×3 (00:56→14:04)
[2022-09-09] MEDS: Acetaminophen 500 MG TAB PO SCH ×3 (00:56→14:08)
[2022-09-09] MEDS: Sodium Chloride 1 GM TAB PO SCH (00:57)
[2022-09-09 05:39] LABS: #Basophils 0.1 thou/uL (0.0-0.2); #Eosinphils 0.2 thou/uL (0.0-0.7); #Lymphocytes 2.9 thou/uL (1.20-3.40); #Monocytes 0.5 thou/uL (0.11-0.59); #Neutrophils 2.7 thou/uL (1.40-6.50); %Basophils 1.3 % (0.0-1.0); %Eosinophils 3.6 % (0.0-10.0); %Lymphocytes 44.9 % (21.0-51.0); %Monocytes 7.8 % (0.0-10.0); %Neutrophils 42.5 % (42.0-75.0); Hemoglobin 11.4 g/dL (12.0-16.0); Mean Corpuscular HGB CONC 31.8 g/dL (32.0-36.0); Mean Corpuscular Hemoglobin 31.8 pg (27.0-31.0); Mean Platelet Volume 9.9 fL (7.4-10.4); Platelet Count 209 thou/uL (130-400); RBC Distribution Width 13.2 % (11.5-14.5); Red Blood Cell (RBC) Count 3.58 mill/uL (4.20-5.40); White Blood Cell (WBC) Count 6.4 thou/uL (4.8-10.8)
[2022-09-09 06:01] LABS: Anion Gap 14 mmol/L (10-20); BUN (Urea Nitrogen) 19 mg/dL (9.8-20.1); Calc. Creatinine Clearance 57 mL/min (70-130); Calcium 9.6 mg/dL (7.8-10.44); Carbon Dioxide 20 mmol/L (23-31); Chloride 105 mmol/L (98-107); Estimated GFR 97; Glucose 100 mg/dL (80-115); Magnesium 1.6 mg/dL (1.6-2.6); Phosphorus 4.5 mg/dL (2.3-4.7); Potassium 4.5 mmol/L (3.5-5.1); Sodium 134 mmol/L (136-145)
[2022-09-09] MEDS ORDERED: Sodium Chloride 1 GM TAB PO SCH (09:00)
[2022-09-09] MEDS: Polyethylene Glycol 3350 17 GM Packet PO SCH (09:54)
[2022-09-09] MEDS: DULoxetine 30 MG CAP PO SCH (09:55)
[2022-09-09] MEDS: Gabapentin 100 MG CAP PO SCH ×2 (09:56→15:33)
[2022-09-09] MEDS: Losartan 25 MG TAB PO SCH (09:56)
[2022-09-09] MEDS: Senokot S 8.6-50 MG TAB PO SCH (09:56)
[2022-09-09] MEDS: traMADol HCl 50 MG TAB PO PRN (09:57)
[2022-09-09 11:24] VITALS: TEMP 97.8
[2022-09-09] MEDS: Escitalopram Oxalate 10 mg Tablet PO SCH (14:03)
[2022-09-09 14:10] VITALS: BP 114/74
== END 2022-09-09 18:32 | DRG 560 ==
LOC: ERS 17:00 → SURG A 21:54 → OBSVTOIN 08-30 16:45
PROVIDERS: ADMIT Specialist; ATTEND Specialist
PROC: 0SWSXJZ Revision of Synthetic Substitute in Left Hip Joint, Femoral Surface, External Approach (ICD-10-PCS; principal; 2022-08-30)
DX: T84.021A Dislocation of internal left hip prosthesis, initial encounter (principal); E87.1 Hypo-osmolality and hyponatremia; S32.591A Other specified fracture of right pubis, initial encounter for closed fracture; Z20.822 Contact with and (suspected) exposure to COVID-19; Z23 Encounter for immunization; I10 Essential (primary) hypertension; M19.90 Unspecified osteoarthritis, unspecified site; M41.9 Scoliosis, unspecified; Z96.643 Presence of artificial hip joint, bilateral; F32.A Depression, unspecified; F17.210 Nicotine dependence, cigarettes, uncomplicated; R29.6 Repeated falls; F41.9 Anxiety disorder, unspecified; N18.2 Chronic kidney disease, stage 2 (mild); I12.9 Hypertensive chronic kidney disease with stage 1 through stage 4 chronic kidney disease, or unspecified chronic kidney disease; D63.1 Anemia in chronic kidney disease; Z60.2 Problems related to living alone; Y83.1 Surgical operation with implant of artificial internal device as the cause of abnormal reaction of the patient, or of later complication, without mention of misadventure at the time of the procedure; E83.39 Other disorders of phosphorus metabolism; E83.42 Hypomagnesemia; R13.10 Dysphagia, unspecified; W07.XXXA Fall from chair, initial encounter; Z96.641 Presence of right artificial hip joint; Y92.009 Unspecified place in unspecified non-institutional (private) residence as the place of occurrence of the external cause; Z86.73 Personal history of transient ischemic attack (TIA), and cerebral infarction without residual deficits; Z99.3 Dependence on wheelchair; Z98.890 Other specified postprocedural states; Z86.14 Personal history of Methicillin resistant Staphylococcus aureus infection; Z91.81 History of falling; Z87.440 Personal history of urinary (tract) infections
CPT/HCPCS: 27250; 36415; 36416; 70450; 71045; 72170; 80048; 80053; 81001; 82533; 82550; 83735; 84100; 84484; 85025; 87086; 87811; 90715; 93005; 96375; 96376; 99152; G0378; J0360; J1650; J2270; J2405; U0002

== ENCOUNTER 2022-09-26 15:15 | Observation (INO) | payer OTHER, MEDICAID ==
[~2022-09-26 15:15] MED LIST changes: -ISOVUE-370 76%-LOCM 1 ML ONE; +Iopamidol-370 76% 500 ML 1 ML ONE
[2022-09-26 15:46] LABS: #Lymphocytes 2.6 thou/uL (1.20-3.40); #Monocytes 0.8 thou/uL (0.11-0.59); #Neutrophils 11.8 thou/uL (1.40-6.50); %Basophils 0.3 % (0.0-1.0); %Eosinophils 0.1 % (0.0-10.0); %Lymphocytes 17.1 % (21.0-51.0); %Monocytes 5.1 % (0.0-10.0); %Neutrophils 77.4 % (42.0-75.0); Hemoglobin 12.1 g/dL (12.0-16.0); Mean Corpuscular HGB CONC 33.7 g/dL (32.0-36.0); Mean Corpuscular Hemoglobin 33.4 pg (27.0-31.0); Platelet Count 249 10x3/uL (130-400); RBC Distribution Width 13.2 % (11.5-14.5); Red Blood Cell (RBC) Count 3.62 mill/uL (4.20-5.40); White Blood Cell (WBC) Count 15.3 10x3/uL (4.8-10.8)
[2022-09-26 16:19] LABS: ALT (SGPT) 21 U/L (8-55); AST (SGOT) 33 U/L (5-34); Albumin 4.5 g/dL (3.4-4.8); Alkaline Phosphatase 79 U/L (40-110); Anion Gap 19 mmol/L (10-20); BUN (Urea Nitrogen) 24 mg/dL (9.8-20.1); Bilirubin, Total 1.1 mg/dL (0.2-1.2); Calc. Creatinine Clearance 0 mL/min (70-130); Calcium 9.4 mg/dL (7.8-10.44); Carbon Dioxide 19 mmol/L (23-31); Chloride 96 mmol/L (98-107); Estimated GFR 62; Globulin 3.1 g/dL (2.4-3.5); Glucose 118 mg/dL (80-115); Lipase 27 U/L (8-78); Potassium 3.2 mmol/L (3.5-5.1); Protein, Total 7.6 g/dL (5.8-8.1); Sodium 131 mmol/L (136-145)
[2022-09-26 16:29] LABS: Bacteria/HPF 1+ HPF (None Seen); Bilirubin Negative (Negative); Blood, Urine Trace (Negative); Clarity Cloudy (Clear); Glucose, Urine (Dipstick) 200 mg/dL (Negative); Ketone, Urine 10 mg/dL (Negative); Leukocyte 500 Leu/uL (Negative); Nitrite Negative (Negative); Protein, Urine (Dipstick) 100 mg/dL (Neg-Trace); Specific Gravity, Urine 1.025 (1.002-1.036); Squamous Epithelial 0-3 HPF (0-3); Urobilinogen Normal mg/dL (Less than 2); WBC/HPF 21-50 HPF (0-3); pH, Urine 5.5 (5.0-9.0)
[2022-09-26 16:32] LABS: CKMB 5.3 ng/mL (0-6.6)
[2022-09-26] MEDS ORDERED: Aspirin Chewable 81 MG TAB ONE (17:04)
[2022-09-26] MEDS ORDERED: Ondansetron PF 4 MG/2 ML Vial IVP PRN (18:11)
[2022-09-26] MEDS ORDERED: Ondansetron ODT 4 MG TAB PO PRN (18:11)
[2022-09-26] MEDS ORDERED: Acetaminophen 325 MG TAB PO PRN (18:11)
[2022-09-26] MEDS ORDERED: Electrolyte Replacement Protocol 1 EACH FS PRN (18:15)
[2022-09-26 18:47] LABS: Magnesium 1.6 mg/dL (1.6-2.6); Phosphorus 3.2 mg/dL (2.3-4.7)
[2022-09-26 19:52] LABS: Troponin I 0.065 ng/mL (< 0.028)
[2022-09-26] MEDS: ALPRAZolam 0.25 MG TAB PO PRN (21:29)
[2022-09-26] MEDS: Sodium Chloride 0.9% 1,000 ML IV SCH (21:33)
[2022-09-26] MEDS: cefTRIAXone\\ROCEPHIN 1 GM in Sodium Chloride 0.9% 100 ML IVPB SCH (21:36)
[2022-09-26] MEDS ORDERED: Magnesium 2 GM/50 ML(in water) 2 GM in Premix Bag 1 BAG IVPB SCH (22:00)
[2022-09-26] MEDS ORDERED: Potassium Chloride 20 MEQ TAB PO SCH (22:00)
[2022-09-26 22:51] LABS: Troponin I 0.058 ng/mL (< 0.028)
[2022-09-27 00:30] VITALS: BMI 19.8
[2022-09-27 06:15] LABS: #Basophils 0.1 thou/uL (0.0-0.2); #Eosinphils 0.1 thou/uL (0.0-0.7); #Monocytes 0.6 thou/uL (0.11-0.59); #Neutrophils 4.8 thou/uL (1.40-6.50); %Lymphocytes 35.1 % (21.0-51.0); %Monocytes 7.4 % (0.0-10.0); %Neutrophils 55.5 % (42.0-75.0); Hemoglobin 10.6 g/dL (12.0-16.0); Mean Corpuscular HGB CONC 32.1 g/dL (32.0-36.0); Mean Corpuscular Hemoglobin 31.9 pg (27.0-31.0); Mean Corpuscular Volume 99.4 fl (78.0-98.0); Mean Platelet Volume 10.1 fL (7.4-10.4); Platelet Count 220 10x3/uL (130-400); RBC Distribution Width 13.1 % (11.5-14.5); Red Blood Cell (RBC) Count 3.33 mill/uL (4.20-5.40); White Blood Cell (WBC) Count 8.6 10x3/uL (4.8-10.8)
[2022-09-27 06:36] LABS: Anion Gap 12 mmol/L (10-20); BUN (Urea Nitrogen) 16 mg/dL (9.8-20.1); Calc. Creatinine Clearance 63 mL/min (70-130); Calcium 8.6 mg/dL (7.8-10.44); Carbon Dioxide 23 mmol/L (23-31); Cardiac Risk 1.8 (Less than 4.5); Chloride 105 mmol/L (98-107); Cholesterol 127 mg/dl (< 200 Desired); Estimated GFR 100; Glucose 96 mg/dL (80-115); HDL Cholesterol 70 mg/dL (>60 Neg Risk); LDL Cholesterol, Calculated 47 mg/dL; Potassium 3.5 mmol/L (3.5-5.1); Sodium 136 mmol/L (136-145); Triglycerides 48 mg/dL (Less than 150)
[2022-09-27] MEDS: Sodium Chloride 0.9% 1,000 ML IV SCH (08:44)
[2022-09-27] MEDS ORDERED: Aspirin Chewable 81 MG TAB PO SCH (09:00)
[2022-09-27] MEDS ORDERED: ADENOSINE 60 MG/20 ML VIAL ONE (09:42)
[2022-09-27] MEDS: Potassium Chloride 20 MEQ in Premix Bag 1 BAG IVPB SCH ×2 (14:32→16:21)
[2022-09-27] MEDS ORDERED: Losartan 25 MG TAB PO SCH (14:45)
[2022-09-27] MEDS: ALPRAZolam 0.25 MG TAB PO PRN ×2 (15:49→20:29)
[2022-09-27] MEDS: cefTRIAXone\\ROCEPHIN 1 GM in Sodium Chloride 0.9% 100 ML IVPB SCH (20:30)
[2022-09-28] MEDS: Furosemide 20 MG TAB PO SCH ×2 (08:24→08:25)
[2022-09-28] MEDS ORDERED: DULoxetine 30 MG CAP PO SCH (09:00)
[2022-09-28] MEDS ORDERED: Aspirin 81 mg Enteric Coated Tablet PO SCH (09:00)
[2022-09-28] MEDS ORDERED: Losartan 25 MG TAB PO SCH (09:00)
[2022-09-28] MEDS ORDERED: Gabapentin 100 MG CAP PO SCH (09:00)
[2022-09-28] MEDS ORDERED: cloNIDine 0.1 MG TAB PO SCH (09:00)
[2022-09-28] MEDS ORDERED: Escitalopram Oxalate 10 mg Tablet PO SCH (09:00)
[2022-09-28 11:47] VITALS: BP 106/71; TEMP 97.8
[2022-09-28] MEDS ORDERED: Atorvastatin Calcium 40 MG TAB PO SCH (21:00)
[2022-09-28] MEDS ORDERED: Amitriptyline HCl 25 MG TAB PO SCH (21:00)
[2022-10-05] MEDS ORDERED: Aspirin 81 mg Enteric Coated Tablet PO SCH (09:00)
== END 2022-09-28 12:00 | disposition home or self-care (01) ==
LOC: ERS 15:15 → NEURO 17:51
PROVIDERS: ADMIT Family Medicine; ATTEND Family Medicine
DX: R07.9 Chest pain, unspecified (principal); R77.8 Other specified abnormalities of plasma proteins; I10 Essential (primary) hypertension; N39.0 Urinary tract infection, site not specified; E87.1 Hypo-osmolality and hyponatremia; E87.6 Hypokalemia; R91.1 Solitary pulmonary nodule; N32.81 Overactive bladder; M19.90 Unspecified osteoarthritis, unspecified site; I69.354 Hemiplegia and hemiparesis following cerebral infarction affecting left non-dominant side; Z86.14 Personal history of Methicillin resistant Staphylococcus aureus infection; Z87.891 Personal history of nicotine dependence; Z79.82 Long term (current) use of aspirin; Z79.899 Other long term (current) drug therapy; Z99.3 Dependence on wheelchair; Z20.822 Contact with and (suspected) exposure to COVID-19
CPT/HCPCS: 71045; 71275; 78452; 80048; 80053; 80061; 82553; 83605; 83690; 83735; 83880; 84100; 84484 ×2; 85025 ×2; 85379; 87040; 87086; 93005; 93017; 94760; 96361; 96374; 96375 ×2; 96376; 99285; A9500; G0378 ×4; U0003; U0005; 36415; 81003; 81015; 96360; J0153; J0696; J2405; J3475; J3480; J3490; J7050; Q9967

== ENCOUNTER 2023-03-09 10:22 | Inpatient (IN) | payer OTHER, MEDICAID ==
[2023-03-09] MEDS ORDERED: fentaNYL 50 mcg/mL 1 mL Vial ONE (13:17)
[2023-03-09 13:54] LABS: #Basophils 0.1 thou/uL (0.0-0.2); #Eosinphils 0.1 thou/uL (0.0-0.7); #Lymphocytes 3.5 thou/uL (1.20-3.40); #Monocytes 0.3 thou/uL (0.11-0.59); %Basophils 1.4 % (0.0-1.0); %Eosinophils 1.7 % (0.0-10.0); %Lymphocytes 43.4 % (21.0-51.0); %Monocytes 4.2 % (0.0-10.0); %Neutrophils 49.4 % (42.0-75.0); Hemoglobin 14.7 g/dL (12.0-16.0); Mean Corpuscular HGB CONC 36.2 g/dL (32.0-36.0); Mean Corpuscular Hemoglobin 33.3 pg (27.0-31.0); Mean Platelet Volume 9.6 fL (7.4-10.4); Platelet Count 218 10x3/uL (130-400); RBC Distribution Width 11.6 % (11.5-14.5); Red Blood Cell (RBC) Count 4.42 mill/uL (4.20-5.40); White Blood Cell (WBC) Count 8.2 10x3/uL (4.8-10.8)
[2023-03-09 14:16] LABS: ALT (SGPT) 38 U/L (8-55); AST (SGOT) 46 U/L (5-34); Albumin 4.4 g/dL (3.4-4.8); Alkaline Phosphatase 91 U/L (40-110); Anion Gap 20 mmol/L (10-20); BUN (Urea Nitrogen) 46 mg/dL (9.8-20.1); Bilirubin, Total 0.4 mg/dL (0.2-1.2); Calc. Creatinine Clearance 0 mL/min (70-130); Calcium 9.7 mg/dL (7.8-10.44); Carbon Dioxide 16 mmol/L (23-31); Chloride 102 mmol/L (98-107); Estimated GFR 66; Globulin 3.7 g/dL (2.4-3.5); Glucose 66 mg/dL (80-115); Potassium 5.1 mmol/L (3.5-5.1); Protein, Total 8.1 g/dL (5.8-8.1); Sodium 133 mmol/L (136-145)
[2023-03-09 17:47] VITALS: BMI 21.2
[2023-03-09] MEDS ORDERED: Acetaminophen 325 MG TAB PO PRN (17:52)
[2023-03-09] MEDS ORDERED: cloNIDine 0.1 MG TAB PO PRN (19:20)
[2023-03-09] MEDS: HYDROcodone/Acetaminophen 5/325 mg Tablet PO PRN (19:40)
[2023-03-09] MEDS: Acetaminophen 325 MG TAB PO SCH (19:41)
[2023-03-09] MEDS: Dextrose 5 % And 0.9 % NaCl 1,000 ML IV SCH (19:42)
[2023-03-09] MEDS: Lidocaine 4% Patch TD SCH (19:42)
[2023-03-10] MEDS: HYDROcodone/Acetaminophen 5/325 mg Tablet PO PRN ×4 (01:16→17:26)
[2023-03-10] MEDS: Dextrose 5 % And 0.9 % NaCl 1,000 ML IV SCH ×2 (06:48→20:31)
[2023-03-10] MEDS: Acetaminophen 325 MG TAB PO SCH ×3 (08:37→20:24)
[2023-03-10] MEDS: Transdermal Patch Removal TOP SCH (08:54)
[2023-03-10 09:03] LABS: #Monocytes 0.5 thou/uL (0.11-0.59); %Basophils 0.7 % (0.0-1.0); %Eosinophils 1.4 % (0.0-10.0); %Lymphocytes 26.4 % (21.0-51.0); %Monocytes 6.8 % (0.0-10.0); %Neutrophils 64.7 % (42.0-75.0); Hemoglobin 12.7 g/dL (12.0-16.0); Mean Corpuscular HGB CONC 34.4 g/dL (32.0-36.0); Mean Corpuscular Hemoglobin 32.5 pg (27.0-31.0); Mean Corpuscular Volume 94.3 fl (78.0-98.0); Mean Platelet Volume 9.7 fL (7.4-10.4); Platelet Count 174 10x3/uL (130-400); RBC Distribution Width 11.7 % (11.5-14.5); Red Blood Cell (RBC) Count 3.91 mill/uL (4.20-5.40); White Blood Cell (WBC) Count 7.7 10x3/uL (4.8-10.8)
[2023-03-10 09:04] LABS: #Basophils 0.1 thou/uL (0.0-0.2); #Eosinphils 0.1 thou/uL (0.0-0.7)
[2023-03-10 12:53] LABS: Anion Gap 14 mmol/L (10-20); BUN (Urea Nitrogen) 28 mg/dL (9.8-20.1); Calc. Creatinine Clearance 58 mL/min (70-130); Calcium 8.5 mg/dL (7.8-10.44); Carbon Dioxide 20 mmol/L (23-31); Chloride 109 mmol/L (98-107); Estimated GFR 96; Glucose 124 mg/dL (80-115); Potassium 3.7 mmol/L (3.5-5.1); Sodium 139 mmol/L (136-145)
[2023-03-10] MEDS: Pregabalin 25 MG CAP PO SCH ×2 (15:01→20:23)
[2023-03-10] MEDS: Amitriptyline HCl 25 MG TAB PO SCH (20:24)
[2023-03-10] MEDS: Lidocaine 4% Patch TD SCH (20:28)
[2023-03-10] MEDS: Trospium 20 MG TAB PO SCH (21:03)
[2023-03-11] MEDS: HYDROcodone/Acetaminophen 5/325 mg Tablet PO PRN ×3 (00:24→19:51)
[2023-03-11] MEDS: Dextrose 5 % And 0.9 % NaCl 1,000 ML IV SCH (05:09)
[2023-03-11] MEDS: Trospium 20 MG TAB PO SCH ×2 (08:43→20:01)
[2023-03-11] MEDS: Aripiprazole 2 MG TAB PO SCH (08:43)
[2023-03-11] MEDS: Pregabalin 25 MG CAP PO SCH ×3 (08:43→20:01)
[2023-03-11] MEDS: Acetaminophen 325 MG TAB PO SCH ×3 (08:43→19:51)
[2023-03-11] MEDS: Transdermal Patch Removal TOP SCH (08:45)
[2023-03-11] MEDS: Lidocaine 4% Patch TD SCH (19:56)
[2023-03-11] MEDS: Amitriptyline HCl 25 MG TAB PO SCH (20:01)
[2023-03-12] MEDS: Dextrose 5 % And 0.9 % NaCl 1,000 ML IV SCH (03:20)
[2023-03-12 04:56] VITALS: TEMP 97.8
[2023-03-12] MEDS: HYDROcodone/Acetaminophen 5/325 mg Tablet PO PRN (06:18)
[2023-03-12 07:43] VITALS: BP 149/92
[2023-03-12] MEDS: Transdermal Patch Removal TOP SCH (08:51)
[2023-03-12] MEDS: Pregabalin 25 MG CAP PO SCH ×2 (08:51→15:03)
[2023-03-12] MEDS: Aripiprazole 2 MG TAB PO SCH (08:51)
[2023-03-12] MEDS: Acetaminophen 325 MG TAB PO SCH ×2 (08:52→15:03)
[2023-03-12] MEDS: Trospium 20 MG TAB PO SCH (08:52)
[2023-03-12] MEDS ORDERED: Losartan 25 MG TAB PO SCH (09:00)
[2023-03-12] MEDS ORDERED: Aspirin 81 mg Enteric Coated Tablet PO SCH (09:00)
[2023-03-12] MEDS ORDERED: Doxycycline 100 MG CAP PO SCH ×2 (10:15→21:00)
== END 2023-03-12 17:09 | disposition home or self-care (01) | DRG 556 ==
LOC: ERS 10:22 → T4-B 17:30 → OBSVTOIN 03-10 15:21
PROVIDERS: ADMIT Hospitalist; ATTEND Hospitalist
DX: M25.552 Pain in left hip (principal); E87.1 Hypo-osmolality and hyponatremia; I69.391 Dysphagia following cerebral infarction; I10 Essential (primary) hypertension; F32.A Depression, unspecified; G51.0 Bell's palsy; N32.81 Overactive bladder; F41.9 Anxiety disorder, unspecified; Z96.643 Presence of artificial hip joint, bilateral; G89.29 Other chronic pain; M15.9 Polyosteoarthritis, unspecified; Z79.899 Other long term (current) drug therapy; Z79.82 Long term (current) use of aspirin; Z86.14 Personal history of Methicillin resistant Staphylococcus aureus infection; Z82.49 Family history of ischemic heart disease and other diseases of the circulatory system; Z80.3 Family history of malignant neoplasm of breast; Z87.891 Personal history of nicotine dependence
CPT/HCPCS: 36415; 36416; 80048; 80053; 85025; 96361; 96374; J1650; J3010; J7042

== ENCOUNTER 2023-03-17 22:45 | Emergency (ER) | payer OTHER, MEDICAID | END 2023-03-18 01:29 | disposition home or self-care (01) | LOC: ERS 22:45 | DX: S40.011A Contusion of right shoulder, initial encounter (principal); I10 Essential (primary) hypertension; F17.210 Nicotine dependence, cigarettes, uncomplicated; W18.30XA Fall on same level, unspecified, initial encounter ==

== ENCOUNTER 2023-06-02 07:04 | Emergency (ER) | payer OTHER, MEDICAID ==
[2023-06-02] MEDS ORDERED: HYDROcodone/Acetaminophen 5/325 mg Tablet ONE (07:24)
== END 2023-06-02 08:04 | disposition home or self-care (01) ==
LOC: ERS 07:04
DX: M25.511 Pain in right shoulder (principal); F17.210 Nicotine dependence, cigarettes, uncomplicated; I10 Essential (primary) hypertension